=== PATIENT | male | born 1970 | race Caucasian/White ===

== ENCOUNTER 2019-05-14 16:00 | Emergency (ER) | payer MEDICAID, OTHER ==
[~2019-05-14] VITALS: Ht 162.6 cm; Wt 82.0 kg
[~2019-05-14 16:00] MED LIST: DOCU100C40 PO; FLO0.4C PO; PANT-47 PO
[2019-05-14 16:08] VITALS: BP 145/98
[2019-05-14] MEDS ORDERED: HYDROcodone/acetaminophen 10/325mg tab PO ONE (16:55)
[2019-05-14] MEDS ORDERED: HYDR-4353 PO (17:07)
== END 2019-05-14 17:26 | disposition home or self-care (01) ==
LOC: ER 16:01
DX: S46.212A Strain of muscle, fascia and tendon of other parts of biceps, left arm, initial encounter (principal); I48.91 Unspecified atrial fibrillation; F15.90 Other stimulant use, unspecified, uncomplicated; Z79.899 Other long term (current) drug therapy; W18.39XA Other fall on same level, initial encounter; Y93.43 Activity, gymnastics; Y92.39 Other specified sports and athletic area as the place of occurrence of the external cause; Y99.8 Other external cause status
CPT/HCPCS: 99283

== ENCOUNTER 2019-09-05 09:15 | Inpatient (IN) | payer MEDICAID ==
[2019-08-27 11:10] LABS: PRE OP INR 0.9 INR; PRE OP PROTIME 9.9 SECONDS (9.0-12.0)
[2019-08-27 11:11] LABS: BASOPHILS % (AUTO) 0.6 % (0-1); EOSINOPHILS # (AUTO) 0.3 X10'3 (0-0.9); EOSINOPHILS % (AUTO) 4.3 % (0-6); LYMPHOCYTES # (AUTO) 2.3 X10'3 (1.1-4.8); LYMPHOCYTES % (AUTO) 29.1 % (21-51); MEAN CORPUSCULAR HEMOGLOBIN 32.6 PG (27.0-31.0); MEAN CORPUSCULAR HGB CONC 34.8 g/dL (33.0-36.5); MEAN CORPUSCULAR VOLUME 93.8 FL (78-98); MONOCYTES # (AUTO) 0.8 X10'3 (0-0.9); MONOCYTES % (AUTO) 9.6 % (2-12); NEUTROPHILS # (AUTO) 4.5 X10'3 (1.8-7.7); NEUTROPHILS % (AUTO) 56.4 % (42-75); PRE OP HEMATOCRIT 47.2 % (42.0-52.0); PRE OP HEMOGLOBIN 16.4 g/dL (14.0-17.9); PRE OP PLATELET COUNT 231 X10'3 (140-440); RED BLOOD COUNT 5.03 X10'6 (4.70-6.10); RED CELL DISTRIBUTION WIDTH 12.7 % (11.5-14.5)
[2019-08-27 11:16] LABS: ALBUMIN 3.8 G/DL (3.4-5.0); ALBUMIN/GLOBULIN RATIO 0.9 (1.1-1.5); ALKALINE PHOSPHATASE 98 IU/L (46-116); BLOOD UREA NITROGEN 13 MG/DL (7-18); BUN/CREATININE RATIO 14.6 (5.4-32.0); CALCIUM 9.2 MG/DL (8.5-10.1); CHLORIDE 101 MMOL/L (99-107); CREATININE 0.89 MG/DL (0.60-1.10); PRE OP ALT 71 U/L (30-65); PRE OP ANION GAP 7 (8-16); PRE OP AST 50 U/L (10-37); PRE OP BILIRUB, TOTAL 0.4 MG/DL (0.0-1.0); PRE OP GLUCOSE 127 MG/DL (70-104); PRE OP SODIUM 137 MMOL/L (135-145); TOTAL CARBON DIOXIDE 29.1 MMOL/L (24-32); TOTAL PROTEIN 7.9 G/DL (6.4-8.2); eGFR > 90 ML/MIN
[~2019-09-05] VITALS: Ht 160 cm; Wt 85.1 kg
[~2019-09-05 09:15] MED LIST changes: +AMLO5TAB16 PO; -DOCU100C40 PO; -FLO0.4C PO; +METO-395 PO; +MODA200T48 PO; -PANT-47 PO; +QUET25TA PO
[2019-09-08] VITALS (19 sets, daily range): BP systolic 85–146; BP diastolic 42–99
[2019-09-08] MEDS ORDERED: ringers solution, lacted 1,000 ML IV SCH (05:00)
[2019-09-08] MEDS ORDERED: cefazolin/dext.iso 2gm/100ml 100 ML IV ONE (05:30)
[2019-09-08] MEDS ORDERED: famotidine 20mg tablet PO ONE (05:30)
[2019-09-08] MEDS ORDERED: tranexamic acid inj. 790 MG in normal saline 100ml IV soln 100 ML IV ONE ×4 (05:30)
[2019-09-08] MEDS ORDERED: vancomycin inj 1,500 MG in normal saline 300ml IV soln IV ONE (05:30)
[2019-09-08] MEDS ORDERED: DOCUMENT DATE & TIME OF BETA-BLOCKER PO ONE (05:30)
[2019-09-08] MEDS ORDERED: LIDOcaine 1% (10mg/ml) 2ml vial ONE (06:25)
[2019-09-08] MEDS ORDERED: metoprolol succinate 25mg (24-HOUR) SR. Tablet PO ONE (06:25)
[2019-09-08] MEDS ORDERED: mupirocin 2% nasal ointment 1gm UD NS ONE (06:40)
[2019-09-08] MEDS ORDERED: ROPIVAcaine 0.5% (5mg/ml) 30ml vial ONE ×2 (08:28→09:20)
[2019-09-08] MEDS ORDERED: ketorolac trometh. 30mg/ml inj. ONE (08:28)
[2019-09-08] MEDS ORDERED: sevoflurane 250ml liquid IH ONE (09:05)
[2019-09-08] MEDS ORDERED: fentaNYL/PF 50MCG/1 ML 2ML syringe ONE (09:17)
[2019-09-08] MEDS ORDERED: MIDAZolam 5mg/5ml vial ONE (09:17)
[2019-09-08] MEDS ORDERED: LIDOcaine 1%/PF 5ML 10 MG/ML VIAL ONE (09:20)
[2019-09-08] MEDS ORDERED: propofol inj 20 ML IV ONE (09:20)
[2019-09-08] MEDS ORDERED: rocuronium 10mg/ml inj IV ONE (09:50)
[2019-09-08] MEDS ORDERED: ondansetron/PF 4mg/2ml inj ONE (12:08)
[2019-09-08] MEDS ORDERED: dexamethasone sod phosphate 4mg/ml inj. ONE (12:08)
--- NOTE | 2019-09-08 12:35 | NUR ---
ADMITTED TO PACU FROM OR ACCOMPANIED BY ANESTHESIA. INTIAL PHYSICAL ASSESSMENT DONE AND RECORDED. REPORT RECEIVED FROM ANESTHESIA.
[2019-09-08] MEDS ORDERED: acetaminophen 325mg tablet PO PRN (13:25)
[2019-09-08] MEDS ORDERED: diphenhydrAMINE 25mg capsule PO PRN ×2 (13:25)
[2019-09-08] MEDS ORDERED: ondansetron/PF 4mg/2ml inj IV PRN (13:25)
[2019-09-08] MEDS ORDERED: oxyCODONE IR 5mg (immed. release) tablet PO PRN ×2 (13:25)
[2019-09-08] MEDS ORDERED: magnesium hydroxide 30ml (MOM) UD suspension PO PRN (13:25)
[2019-09-08] MEDS ORDERED: bisacodyl 10mg suppository rectal RC PRN (13:25)
[2019-09-08] MEDS ORDERED: HYDROmorphone 1 mg/ml syringe IV PRN (13:25)
[2019-09-08] MEDS ORDERED: HYDROmorphone inj. 0.5 MG/0.5 ML DISP.SYRIN IV PRN (13:25)
--- NOTE | 2019-09-08 13:36 | NUR ---
RECEIVED REPORT FROM WADE WOODS
--- NOTE | 2019-09-08 13:45 | NUR ---
PACU DISCHARGE CRITERIA MET, REPORT GIVEN TO FLOOR. DENIES PAIN OR DISCOMFORT, TRANSFERRED TO ROOM IN STABLE GOOD CONDITION.
[2019-09-08] MEDS: acetaminophen 325mg tablet PO SCH ×2 (14:00→20:42)
--- NOTE | 2019-09-08 14:18 | NUR ---
PT ARRIVED ON FLOOR IN ORTHO BED VERY SLEEPY
--- NOTE | 2019-09-08 14:58 | NUR ---
PT CAME TO FLOOR W/OUT ON Q PUMP, CALLED RECOVERY AND OR CHARGE REGARDING ON Q PUMP, PT HAS CATH INSERTED W/CAP ON FOR ON Q PUMP BUT NO ON Q PUMP, RECOVERY NURSE CHECKED W/ANESTHESIOLOGIST, ANESTHESIOLOGIST SAID THAT THERE WAS SUPPOSED TO BE AN ORDER FOR AN ON Q PUMP, SPOKE W/PHARMACIST AND PHARMACY SAID THAT THERE WAS NOT AN ORDERED PLACED TODAY FOR A PUMP RECOVERY NURSE TO ORDER PUMP PER ANESTHESIOLOGIST ORDERS, CONTINUE TO MONITOR PT
[2019-09-08] MEDS ORDERED: ROPIVAcaine 0.2% (10 MG/5 ML) BOLUS INJECTION INTERSCALE PRN (15:00)
[2019-09-08] MEDS ORDERED: ROPIVAcaine 0.2%/PF PUMP/bolus 550 ML INTERSCALE SCH (15:00)
--- NOTE | 2019-09-08 15:56 | NUR ---
smooth recovery nurse attached on q pump to pt cannula, continue to monitor
[2019-09-08] MEDS: ceFAZolin 1GM/D5W- ADD-VANTAGE 50 ML IV SCH (15:59)
[2019-09-08] MEDS ORDERED: tranexamic acid inj. 850 MG in normal saline 100ml IV soln 100 ML IV ONE (16:25)
--- NOTE | 2019-09-08 18:30 | NUR ---
GAVE REPORT TO WADE GODFREY
[2019-09-08] MEDS: potassium cl 20mEq in 1/2 NS 1,000 ML IV SCH ×2 (19:54→21:22)
[2019-09-08] MEDS ORDERED: vancomycin/NS 1 GM ADD-VANTAGE 250 ML IV SCH (20:00)
[2019-09-08] MEDS: modafinil 100mg tablet PO SCH (20:41)
[2019-09-08] MEDS ORDERED: sennosides 8.6mg tablet PO SCH (21:00)
[2019-09-08] MEDS ORDERED: QUEtiapine 25mg tablet PO SCH (21:00)
[2019-09-09] MEDS: ceFAZolin 1GM/D5W- ADD-VANTAGE 50 ML IV SCH (00:36)
[2019-09-09 02:00] VITALS: BP 108/53
[2019-09-09] MEDS: acetaminophen 325mg tablet PO SCH ×3 (02:00→14:00)
[2019-09-09 06:00] VITALS: BP 109/69
[2019-09-09 06:06] LABS: BASOPHILS % (AUTO) 0.1 % (0-1); EOSINOPHILS % (AUTO) 0.1 % (0-6); HEMATOCRIT 35.6 % (42.0-52.0); HEMOGLOBIN 12.4 g/dl (14.0-17.9); LYMPHOCYTES # (AUTO) 1.2 X10'3 (1.1-4.8); LYMPHOCYTES % (AUTO) 9.2 % (21-51); MEAN CORPUSCULAR HEMOGLOBIN 32.7 PG (27.0-31.0); MEAN CORPUSCULAR HGB CONC 34.8 g/dL (33.0-36.5); MEAN CORPUSCULAR VOLUME 93.9 FL (78-98); MEAN PLATELET VOLUME 10.2 FL (7.4-10.4); MONOCYTES # (AUTO) 1.1 X10'3 (0-0.9); MONOCYTES % (AUTO) 7.9 % (2-12); NEUTROPHILS # (AUTO) 11.2 X10'3 (1.8-7.7); NEUTROPHILS % (AUTO) 82.7 % (42-75); PLATELET COUNT 280 X10'3 (140-440); RED BLOOD COUNT 3.79 X10'6 (4.70-6.10); RED CELL DISTRIBUTION WIDTH 12.6 % (11.5-14.5); WHITE BLOOD COUNT 13.5 X10'3 (4.5-11.0)
--- NOTE | 2019-09-09 06:07 | NUR ---
REPORT GIVEN TO WADE FERRER.
[2019-09-09 06:18] LABS: ANION GAP 9 (8-16); CHLORIDE 102 MMOL/L (99-107); POTASSIUM 5.1 MMOL/L (3.5-5.1); SODIUM 136 MMOL/L (135-145); TOTAL CARBON DIOXIDE 24.8 MMOL/L (24-32)
--- NOTE | 2019-09-09 06:28 | NUR ---
RECEIVED REPORT FROM WADE GODFREY
[2019-09-09] MEDS: modafinil 100mg tablet PO SCH (07:45)
[2019-09-09 07:52] VITALS: BP 114/72
[2019-09-09] MEDS ORDERED: metoprolol succinate 25mg (24-HOUR) SR. Tablet PO SCH (08:00)
[2019-09-09] MEDS ORDERED: amLODIPine 5mg tablet PO SCH (08:00)
[2019-09-09] MEDS ORDERED: aspirin 325mg tablet PO SCH (08:30)
[2019-09-09] MEDS: potassium cl 20mEq in 1/2 NS 1,000 ML IV SCH (08:57)
[2019-09-09 10:00] VITALS: BP 110/61
--- NOTE | 2019-09-09 11:21 | NUR ---
pt is asking for narcotic pain relief at this time but unable to quantify his pain level, pain falls asleep while taking, pt was asked by nursing staff to utilize pain pump (on q) bolus and to turn up dial on pump pt is refusing to utilize pain pump at this time, alok is aware of situation and does not feel that it is safe to admin narcotics to patient at this time because of his refusal to utilize pain pump, his low bp, his sleepiness as well as his medical hx of etoh and depression continue to educate and monitor pt
--- NOTE | 2019-09-09 16:50 | NUR ---
Joint replacement consult: Pt seen by RD for written/verbal high protein ed w/ RD contact information provided. Pt agrees to double proteins/eggs TIDWM; dietary notified. Per charge account identification clerk pt hx 1/2 gallon of hard liquor each night and MD orders beerx2 BIDLD. VIVIEN d/w RN regarding thiamin/folic/MVI per MD approval given etoh hx. Addendum: 09/09/19 at [address] Amended: Links added.
[2019-09-09] MEDS ORDERED: ASPI-1 PO (17:23)
--- NOTE | 2019-09-09 17:30 | NUR ---
PT IS DEMANDING TO GO AMA, CHARGE NURSE NOTIFIED DR. GALLOWAY IN OR, NURSING STAFF ADVISED PT NOT TO LEAVE, PT LEFT WITH POWDER PACKS, D/C INSTRUCTIONS, UNDERSTANDING OF INSTRUCTIONS AND W/ALL BELONGINGS IN WHEELCHAIR ACCOMPANIED BY TO PRIVATE VEHICLE TO GO TO GO HOME AND F/U W/SURGEON, PT ALSO SIGNED AMA PAPERWORK
[2019-09-09 18:00] VITALS: BP 108/59
[2019-09-10] MEDS ORDERED: DULO60CA45 PO (09:47)
[2019-09-10] MEDS ORDERED: HYDR-4353 PO (09:48)
[2019-09-10] MEDS ORDERED: acetaminophen 325mg tablet PO PRN (13:25)
== END 2019-09-09 17:30 | disposition left against medical advice (07) | DRG 322 ==
LOC: PAS IN 09-08 05:53 → EDSTATUS 09-08 09:30 → ORTHO 4S 09-08 14:10
PROVIDERS: ADMIT Orthopaedic Surgery; ATTEND Orthopaedic Surgery
PROC: 0RRJ0JZ Replacement of Right Shoulder Joint with Synthetic Substitute, Open Approach (ICD-10-PCS; 2019-09-08)
PROC: 3E0T3BZ Introduction of Anesthetic Agent into Peripheral Nerves and Plexi, Percutaneous Approach (ICD-10-PCS; principal; 2019-09-08 09:10)
DX: M19.011 Primary osteoarthritis, right shoulder (principal); D62 Acute posthemorrhagic anemia; F10.10 Alcohol abuse, uncomplicated; F32.9 Major depressive disorder, single episode, unspecified; G47.30 Sleep apnea, unspecified; I10 Essential (primary) hypertension; I25.10 Atherosclerotic heart disease of native coronary artery without angina pectoris; M25.511 Pain in right shoulder; I48.91 Unspecified atrial fibrillation
CPT/HCPCS: 36415; 80051; 80053; 82948; 85025; 85610; 85730; 87081; 97161; 97530; A4565; A4618; A7000; C1713; C1776; G0378; J0690; J1100; J1170; J1885; J2001; J2250; J2405; J2704; J2795; J3010; J3370; J3480; J7120

== ENCOUNTER 2019-09-10 09:01 | Observation (INO) | payer MEDICAID ==
[~2019-09-10] VITALS: Ht 162.6 cm; Wt 81.8 kg
[~2019-09-10 09:01] MED LIST changes: +ASPI-1 PO
[2019-09-10] MEDS ORDERED: aspirin 81mg tab.chew PO ONE (09:10)
[2019-09-10] MEDS ORDERED: nitroGLYCERIN 0.4mg SUBLingual tab SL PRN (09:10)
[2019-09-10] MEDS ORDERED: iohexol 350MG/ML 100ml bottle IV ONE (09:12)
[2019-09-10] MEDS ORDERED: morphine 4 MG/ML inj SYRINge IV ONE (09:20)
[2019-09-10] MEDS ORDERED: ondansetron/PF 4mg/2ml inj IV ONE (09:20)
[2019-09-10] MEDS ORDERED: enoxaparin 100mg/ml syringe SUBCUT ONE (09:20)
[2019-09-10] MEDS ORDERED: normal saline 1000ML IV soln IVB ONE (09:20)
[2019-09-10 09:32] LABS: BASOPHILS # (AUTO) 0.1 X10'3 (0-0.2); BASOPHILS % (AUTO) 0.5 % (0-1); EOSINOPHILS # (AUTO) 0.1 X10'3 (0-0.9); HEMATOCRIT 30.6 % (42.0-52.0); HEMOGLOBIN 10.9 g/dl (14.0-17.9); LYMPHOCYTES # (AUTO) 3.1 X10'3 (1.1-4.8); LYMPHOCYTES % (AUTO) 25.4 % (21-51); MEAN CORPUSCULAR HGB CONC 35.6 g/dL (33.0-36.5); MEAN CORPUSCULAR VOLUME 92.7 FL (78-98); MEAN PLATELET VOLUME 9.7 FL (7.4-10.4); MONOCYTES # (AUTO) 1.1 X10'3 (0-0.9); MONOCYTES % (AUTO) 9.2 % (2-12); NEUTROPHILS # (AUTO) 7.9 X10'3 (1.8-7.7); NEUTROPHILS % (AUTO) 63.9 % (42-75); PLATELET COUNT 230 X10'3 (140-440); RED BLOOD COUNT 3.31 X10'6 (4.70-6.10); RED CELL DISTRIBUTION WIDTH 12.4 % (11.5-14.5); WHITE BLOOD COUNT 12.4 X10'3 (4.5-11.0)
[2019-09-10] MEDS ORDERED: DULO60CA45 PO (09:47)
[2019-09-10] MEDS ORDERED: HYDR-4353 PO (09:48)
[2019-09-10 09:49] LABS: ALANINE AMINOTRANSFERASE 39 U/L (12-78); ALBUMIN 3.1 G/DL (3.4-5.0); ALKALINE PHOSPHATASE 77 IU/L (46-116); ANION GAP 8 (8-16); ASPARTATE AMINO TRANSFERASE 30 U/L (10-37); BILIRUBIN,TOTAL 0.2 MG/DL (0.1-1.0); BLOOD UREA NITROGEN 25 MG/DL (7-18); BUN/CREATININE RATIO 27.8 (5.4-32.0); CALCIUM 8.2 MG/DL (8.5-10.1); CHLORIDE 101 MMOL/L (99-107); GLUCOSE 133 MG/DL (70-104); POTASSIUM 3.7 MMOL/L (3.5-5.1); SODIUM 137 MMOL/L (135-145); TOTAL CARBON DIOXIDE 28.4 MMOL/L (24-32); TOTAL PROTEIN 6.3 G/DL (6.4-8.2); eGFR 90 ML/MIN
[2019-09-10 10:00] VITALS: BP 124/74
[2019-09-10] MEDS ORDERED: LORazepam 2 mg/ml vial IV PRN ×2 (12:10)
[2019-09-10] MEDS ORDERED: ondansetron/PF 4mg/2ml inj IV PRN (12:10)
[2019-09-10] MEDS ORDERED: magnesium 2GM in 50ml NS 50 ML IV PRN (12:10)
[2019-09-10] MEDS ORDERED: potassium Cl 20 mEq SR tablet PO PRN ×2 (12:10)
[2019-09-10] MEDS ORDERED: bisacodyl 10mg suppository rectal RC PRN (12:10)
[2019-09-10] MEDS ORDERED: potassium CL 10mEq/100ml bag 100 ML IV PRN ×2 (12:10)
[2019-09-10] MEDS ORDERED: ipratropium/albuterol 3ml nebule NEB PRN (12:10)
[2019-09-10] MEDS ORDERED: magnesium 4gm in 100ml NS 100 ML IV PRN (12:10)
[2019-09-10] MEDS ORDERED: haloperidol lactate 5mg/ml inj IM PRN (12:10)
[2019-09-10] MEDS ORDERED: mag hydrox/Alum hydrox/simeth 30ml oral suspension PO PRN (12:10)
[2019-09-10] MEDS ORDERED: magnesium hydroxide 30ml (MOM) UD suspension PO PRN (12:10)
[2019-09-10] MEDS ORDERED: dextrose 50%-water 50ml dispensing syringe IV PRN (12:10)
[2019-09-10] MEDS ORDERED: magnesium Cl slow-release 64mg tablet PO PRN (12:10)
[2019-09-10] MEDS ORDERED: oxyCODONE IR 5mg (immed. release) tablet PO PRN (12:10)
[2019-09-10] MEDS ORDERED: acetaminophen 325mg tablet PO PRN (12:10)
[2019-09-10] MEDS ORDERED: thiamine 100mg/ml 2ml inj. IV ONE (12:10)
[2019-09-10] MEDS ORDERED: modafinil 100mg tablet PO SCH (20:00)
[2019-09-10] MEDS ORDERED: QUEtiapine 25mg tablet PO SCH (21:00)
[2019-09-11] MEDS ORDERED: K and/or MAG REPLACEMENT MC SCH (08:00)
[2019-09-11] MEDS ORDERED: duloxetine 30mg CAPSULE.DR PO SCH (08:00)
[2019-09-11] MEDS ORDERED: amLODIPine 5mg tablet PO SCH (08:00)
[2019-09-11] MEDS ORDERED: metoprolol succinate 25mg (24-HOUR) SR. Tablet PO SCH (08:00)
[2019-09-11] MEDS ORDERED: aspirin 325mg tablet PO SCH (08:30)
== END 2019-09-10 12:30 | disposition left against medical advice (07) ==
LOC: ER 09:02 → ED HOLD 12:06
PROVIDERS: ADMIT Family Medicine; ATTEND Family Medicine
DX: J96.91 Respiratory failure, unspecified with hypoxia (principal); R07.89 Other chest pain; M19.011 Primary osteoarthritis, right shoulder; I12.9 Hypertensive chronic kidney disease with stage 1 through stage 4 chronic kidney disease, or unspecified chronic kidney disease; N18.9 Chronic kidney disease, unspecified; F10.239 Alcohol dependence with withdrawal, unspecified; D72.829 Elevated white blood cell count, unspecified; G47.33 Obstructive sleep apnea (adult) (pediatric); I48.91 Unspecified atrial fibrillation; G47.419 Narcolepsy without cataplexy; Z79.82 Long term (current) use of aspirin; Z79.899 Other long term (current) drug therapy
CPT/HCPCS: 36415; 71045; 71275; 80053; 83880; 84484; 85025; 85610; 93005; 96372; 96374; 96375; 99284; G0378; J2270; J2405; Q9967; J1650

== ENCOUNTER 2020-08-23 08:42 | Outpatient (CLI) | payer MEDICAID ==
[~2020-08-23] VITALS: Ht 162.6 cm; Wt 83.9 kg
[~2020-08-23 08:42] MED LIST changes: +DULO60CA45 PO; +HYDR-4353 PO
[2020-08-23] MEDS ORDERED: CEPH500C5 PO (10:01)
[2020-08-23 10:56] LABS: BASOPHILS # (AUTO) 0.1 X10'3 (0-0.2); BASOPHILS % (AUTO) 0.7 % (0-1); EOSINOPHILS # (AUTO) 0.4 X10'3 (0-0.9); EOSINOPHILS % (AUTO) 4.9 % (0-6); LYMPHOCYTES # (AUTO) 2.4 X10'3 (1.1-4.8); LYMPHOCYTES % (AUTO) 32.6 % (21-51); MEAN CORPUSCULAR HEMOGLOBIN 32.8 PG (27.0-31.0); MEAN CORPUSCULAR HGB CONC 34.5 g/dL (33.0-36.5); MEAN CORPUSCULAR VOLUME 95.1 FL (78-98); MEAN PLATELET VOLUME 10.3 FL (7.4-10.4); MONOCYTES # (AUTO) 0.8 X10'3 (0-0.9); MONOCYTES % (AUTO) 10.2 % (2-12); NEUTROPHILS # (AUTO) 3.9 X10'3 (1.8-7.7); NEUTROPHILS % (AUTO) 51.6 % (42-75); PRE OP HEMATOCRIT 49.3 % (42.0-52.0); PRE OP PLATELET COUNT 248 X10'3 (140-440); RED BLOOD COUNT 5.18 X10'6 (4.70-6.10); RED CELL DISTRIBUTION WIDTH 12.7 % (11.5-14.5)
[2020-08-23 11:14] LABS: PRE OP PROTIME 10.5 SECONDS (9.0-12.0)
[2020-08-23 11:19] LABS: ALBUMIN 4.1 G/DL (3.4-5.0); ALKALINE PHOSPHATASE 89 IU/L (46-116); BLOOD UREA NITROGEN 17 MG/DL (7-18); BUN/CREATININE RATIO 18.1 (5.4-32.0); CALCIUM 9.2 MG/DL (8.5-10.1); CHLORIDE 102 MMOL/L (99-107); CREATININE 0.94 MG/DL (0.60-1.10); PRE OP ALT 65 U/L (30-65); PRE OP ANION GAP 12 (8-16); PRE OP AST 52 U/L (10-37); PRE OP BILIRUB, TOTAL 0.4 MG/DL (0.0-1.0); PRE OP GLUCOSE 142 MG/DL (70-104); PRE OP POTASSIUM 4.4 MMOL/L (3.4-5.1); PRE OP SODIUM 137 MMOL/L (135-145); TOTAL CARBON DIOXIDE 22.9 MMOL/L (24-32); TOTAL PROTEIN 8.1 G/DL (6.4-8.2); eGFR 85 ML/MIN
[2020-08-31] MEDS ORDERED: ringers solution, lacted 1,000 ML IV SCH (05:00)
[2020-08-31] MEDS ORDERED: famotidine 20mg tablet PO ONE (05:30)
== END 2020-08-23 23:59 | disposition home or self-care (01) ==
LOC: PRE-OP 08:42 → EDSTATUS 08-31 10:15
PROVIDERS: ATTEND Orthopaedic Surgery
DX: Z01.812 Encounter for preprocedural laboratory examination (principal); S83.232D Complex tear of medial meniscus, current injury, left knee, subsequent encounter; S83.412D Sprain of medial collateral ligament of left knee, subsequent encounter; M17.12 Unilateral primary osteoarthritis, left knee; M25.562 Pain in left knee; Z20.828 Contact with and (suspected) exposure to other viral communicable diseases
CPT/HCPCS: 36415; 80053; 85025; 85610; 85730; 87081; 87635; J7120

== ENCOUNTER 2020-09-23 08:35 | Inpatient (IN) | payer MEDICAID ==
[2020-09-15 16:58] LABS: BASOPHILS # (AUTO) 0.1 X10'3 (0-0.2); BASOPHILS % (AUTO) 0.8 % (0-1); EOSINOPHILS # (AUTO) 0.3 X10'3 (0-0.9); EOSINOPHILS % (AUTO) 2.8 % (0-6); LYMPHOCYTES # (AUTO) 2.4 X10'3 (1.1-4.8); LYMPHOCYTES % (AUTO) 25.3 % (21-51); MEAN CORPUSCULAR HEMOGLOBIN 32.4 PG (27.0-31.0); MEAN CORPUSCULAR HGB CONC 34.5 g/dL (33.0-36.5); MEAN CORPUSCULAR VOLUME 93.9 FL (78-98); MEAN PLATELET VOLUME 9.9 FL (7.4-10.4); MONOCYTES # (AUTO) 0.7 X10'3 (0-0.9); MONOCYTES % (AUTO) 7.2 % (2-12); NEUTROPHILS % (AUTO) 63.9 % (42-75); PRE OP HEMATOCRIT 50.5 % (42.0-52.0); PRE OP HEMOGLOBIN 17.4 g/dL (14.0-17.9); PRE OP PLATELET COUNT 286 X10'3 (140-440); RED BLOOD COUNT 5.38 X10'6 (4.70-6.10); RED CELL DISTRIBUTION WIDTH 12.2 % (11.5-14.5)
[2020-09-15 17:04] LABS: PRE OP PROTIME 10.3 SECONDS (9.0-12.0)
[2020-09-15 17:07] LABS: ALBUMIN 4.4 G/DL (3.4-5.0); ALKALINE PHOSPHATASE 90 IU/L (46-116); BLOOD UREA NITROGEN 12 MG/DL (7-18); BUN/CREATININE RATIO 13.3 (5.4-32.0); CALCIUM 9.6 MG/DL (8.5-10.1); CHLORIDE 100 MMOL/L (99-107); PRE OP ALT 65 U/L (30-65); PRE OP ANION GAP 10 (8-16); PRE OP AST 33 U/L (10-37); PRE OP BILIRUB, TOTAL 0.5 MG/DL (0.0-1.0); PRE OP GLUCOSE 143 MG/DL (70-104); PRE OP SODIUM 136 MMOL/L (135-145); TOTAL CARBON DIOXIDE 25.9 MMOL/L (24-32); TOTAL PROTEIN 8.7 G/DL (6.4-8.2); eGFR 89 ML/MIN
[~2020-09-23] VITALS: Ht 162.6 cm; Wt 90.0 kg
[2020-09-23] VITALS (17 sets, daily range): BP systolic 98–135; BP diastolic 64–87
[~2020-09-23 08:35] MED LIST changes: -AMLO5TAB16 PO; -ASPI-1 PO; -DULO60CA45 PO; -METO-395 PO; +famotidine 20mg tablet PO ONE; +ringers solution, lacted 1,000 ML IV SCH
[2020-09-23] MEDS ORDERED: ceFAZolin 2gm in dextrose, iso 50 ML IV ONE (12:00)
[2020-09-23] MEDS ORDERED: ROPIVAcaine 0.5% (5mg/ml) 30ml vial ONE ×2 (12:25→14:32)
[2020-09-23] MEDS ORDERED: ketorolac trometh. 30mg/ml inj. ONE (12:25)
[2020-09-23] MEDS ORDERED: tranexamic acid inj. 860 MG in normal saline 100ml IV soln 100 ML IV ONE ×4 (12:45)
[2020-09-23] MEDS ORDERED: glycopyrrolate 0.2mg/ml inj ONE (13:02)
[2020-09-23] MEDS ORDERED: neostigmine methylsulfate 1 MG/ML 10ml vial ONE (13:02)
[2020-09-23] MEDS ORDERED: sevoflurane 250ml liquid IH ONE (13:02)
[2020-09-23] MEDS ORDERED: dexamethasone sod phosphate 10mg/ml inj ONE (13:02)
[2020-09-23] MEDS ORDERED: ondansetron/PF 4mg/2ml inj ONE (13:02)
[2020-09-23] MEDS ORDERED: LIDOcaine 1%/PF 5ML 10 MG/ML VIAL ONE (13:02)
[2020-09-23] MEDS ORDERED: MIDAZolam 5mg/5ml vial ONE (13:16)
[2020-09-23] MEDS ORDERED: fentaNYL /PF 50mcg/ml 5ml ampule ONE (13:17)
[2020-09-23] MEDS ORDERED: LIDOcaine 2% (20mg/ml) 5ml vial ONE (13:20)
[2020-09-23] MEDS ORDERED: propofol inj 20 ML IV ONE (13:20)
[2020-09-23] MEDS ORDERED: rocuronium 10mg/ml inj IV ONE (13:32)
[2020-09-23] MEDS ORDERED: morphine 4 MG/ML inj SYRINge IV PRN (13:50)
[2020-09-23] MEDS ORDERED: fentaNYL/PF 50MCG/1 ML 2ML syringe IV PRN ×2 (13:50)
[2020-09-23] MEDS ORDERED: morphine 2 MG/ML inj. syringe IV PRN (13:50)
[2020-09-23] MEDS ORDERED: ondansetron/PF 4mg/2ml inj IV PRN ×2 (13:50→16:00)
[2020-09-23] MEDS ORDERED: ROPIVAcaine 0.2% (10 MG/5 ML) BOLUS INJECTION ADDCANAL PRN (13:50)
[2020-09-23] MEDS ORDERED: hydrALAZINE 20mg/ml inj. IV PRN (13:50)
[2020-09-23] MEDS ORDERED: ringers solution, lacted 1,000 ML IV SCH (13:50)
[2020-09-23] MEDS ORDERED: ROPIVAcaine 0.2%/PF PUMP/bolus 550 ML ADDCANAL SCH (13:50)
[2020-09-23] MEDS ORDERED: labetalol 20mg/4ml (5mg/ml) syringe IV PRN (13:50)
[2020-09-23] MEDS ORDERED: labetalol 20mg/4ml (5mg/ml) syringe IV ONE ×2 (14:05→14:56)
[2020-09-23] MEDS ORDERED: HYDROmorphone 1 mg/ml syringe IV PRN (16:00)
[2020-09-23] MEDS ORDERED: acetaminophen 325mg tablet PO PRN (16:00)
[2020-09-23] MEDS ORDERED: diphenhydrAMINE 25mg capsule PO PRN ×2 (16:00)
[2020-09-23] MEDS ORDERED: HYDROmorphone inj. 0.5 MG/0.5 ML DISP.SYRIN IV PRN (16:00)
[2020-09-23] MEDS ORDERED: bisacodyl 10mg suppository rectal RC PRN (16:00)
[2020-09-23] MEDS ORDERED: oxyCODONE IR 5mg (immed. release) tablet PO PRN (16:00)
[2020-09-23] MEDS ORDERED: magnesium hydroxide 30ml (MOM) UD suspension PO PRN (16:00)
--- NOTE | 2020-09-23 16:40 | NUR ---
Received from OR via , accompanied by Anesthesiologist DR LEUNG and report given by Anesthesiolgist. PATIENT WAKING UP, DENIES PAIN, V/S WNL, SCD ON, 20G PIV RUE, NEUROVASCULAR CHAECKS INTACT, LEFT KNEE WRAP DRESSING CDI W/ ONQ BALL AT 2ML/HR AND COLD POWDER PACK
--- NOTE | 2020-09-23 17:20 | NUR ---
PATIENT NORCO, DENIES PAIN, V/S WNL, SCD ON, 20G PIV RUE, NEUROVASCULAR CHECKS INTACT, LEFT KNEE WRAP DRESSING CDI W/ ONQ BALL AT 4ML/HR AND COLD POWDER PACK. PATIENT TAKEN TO 340A WITH ALL BELONIGNGS AND HOOKED UP TO MONITORS IN ROOM AND REPORT GIVEN TO RN WHO HAS TAKEN OVER PATIENT CARE.
--- NOTE | 2020-09-23 17:50 | NUR ---
Patient in room [facility]. I have received report from Tone OLVERA and had the opportunity to ask questions and assume patient care. no signs of distress
--- NOTE | 2020-09-23 18:32 | NUR ---
Patient in room [facility]. I have received report from WADE Forbes and had the opportunity to ask questions and assume patient care.
[2020-09-23] MEDS ORDERED: tranexamic acid inj. 900 MG in normal saline 100ml IV soln 100 ML IV ONE (19:00)
[2020-09-23] MEDS: ceFAZolin/D5W- 1GM premix 50 ML IV SCH (19:08)
[2020-09-23] MEDS: potassium cl 20mEq in 1/2 NS 1,000 ML IV SCH (19:29)
[2020-09-23] MEDS ORDERED: vancomycin/NS 1 GM ADD-VANTAGE 250 ML IV SCH (20:00)
[2020-09-23] MEDS: modafinil 100mg tablet PO SCH ×3 (20:00→21:17)
[2020-09-23] MEDS: acetaminophen 325mg tablet PO SCH (20:37)
[2020-09-23] MEDS: oxyCODONE IR 5mg (immed. release) tablet PO PRN (20:51)
[2020-09-23] MEDS ORDERED: QUEtiapine 25mg tablet PO SCH (21:00)
[2020-09-23] MEDS ORDERED: sennosides 8.6mg tablet PO SCH (21:00)
[2020-09-24] VITALS: BP 103/58
[2020-09-24] MEDS: ceFAZolin/D5W- 1GM premix 50 ML IV SCH (00:06)
[2020-09-24] MEDS: acetaminophen 325mg tablet PO SCH ×2 (02:00→07:37)
[2020-09-24 04:00] VITALS: BP 115/60
[2020-09-24] MEDS: potassium cl 20mEq in 1/2 NS 1,000 ML IV SCH ×2 (06:33)
--- NOTE | 2020-09-24 06:35 | NUR ---
Problems reprioritized. Patient report given, questions answered & plan of care reviewed with WADE Fabian.
[2020-09-24 06:49] LABS: BASOPHILS % (AUTO) 0.1 % (0-1); EOSINOPHILS % (AUTO) 0 % (0-6); HEMATOCRIT 40.8 % (42.0-52.0); HEMOGLOBIN 13.9 g/dl (14.0-17.9); LYMPHOCYTES # (AUTO) 1.1 X10'3 (1.1-4.8); LYMPHOCYTES % (AUTO) 9.4 % (21-51); MEAN CORPUSCULAR HEMOGLOBIN 32.1 PG (27.0-31.0); MEAN CORPUSCULAR VOLUME 94.3 FL (78-98); MEAN PLATELET VOLUME 10.1 FL (7.4-10.4); MONOCYTES # (AUTO) 0.6 X10'3 (0-0.9); MONOCYTES % (AUTO) 5.4 % (2-12); NEUTROPHILS # (AUTO) 9.8 X10'3 (1.8-7.7); NEUTROPHILS % (AUTO) 85.1 % (42-75); PLATELET COUNT 250 X10'3 (140-440); RED BLOOD COUNT 4.33 X10'6 (4.70-6.10); RED CELL DISTRIBUTION WIDTH 12.3 % (11.5-14.5); WHITE BLOOD COUNT 11.5 X10'3 (4.5-11.0)
[2020-09-24 07:16] LABS: ANION GAP 11 (8-16); CHLORIDE 103 MMOL/L (99-107); POTASSIUM 5.5 MMOL/L (3.5-5.1); SODIUM 135 MMOL/L (135-145); TOTAL CARBON DIOXIDE 21.2 MMOL/L (24-32)
[2020-09-24] MEDS: modafinil 100mg tablet PO SCH ×2 (08:00→10:46)
[2020-09-24 08:12] VITALS: BP 89/43
[2020-09-24] MEDS ORDERED: aspirin 325mg tablet PO SCH (08:30)
[2020-09-24] MEDS: oxyCODONE IR 5mg (immed. release) tablet PO PRN (08:52)
[2020-09-24 12:10] VITALS: BP 110/50
--- NOTE | 2020-09-24 14:43 | NUR ---
PER CONVERSATION WITH DR URENA, OK TO DC PT TODAY IF HE DID OK WITH PHYSICAL THERAPY. PER PHYSICAL THERAPY PT WAS SAFE TO DC HOME. PT WANTED TO DC TODAY, WAS GIVEN THE OPTION TO STAY ANOTHER NIGHT IF HE FELT HE NEEDED IT. PT REFUSED. PT DISCHARGED IN STABLE CONDITION. LEFT FACILITY IN PRIVATE VEHICLE WITH . IV DC CANULA INTACT. ON-Q ON PT, PT AWARE HOW TO MANAGE. FOLLOW UP APPT MADE WITH AYANNA. ALL QUESTIONS ANSWERED. ALL BELONGINGS IN HAND. Addendum: 09/24/20 at 1448 by Dede Fuentes RN Amended: Links added.
[2020-09-25] MEDS ORDERED: acetaminophen 325mg tablet PO PRN (16:00)
== END 2020-09-24 14:38 | disposition home or self-care (01) | DRG 302 ==
LOC: PAS IN 11:18 → EDSTATUS 13:15 → SUR 3N 15:57
PROVIDERS: ADMIT Orthopaedic Surgery; ATTEND Orthopaedic Surgery
PROC: 8E0Y0CZ Robotic Assisted Procedure of Lower Extremity, Open Approach (ICD-10-PCS; 2020-09-23)
PROC: 3E0T3BZ Introduction of Anesthetic Agent into Peripheral Nerves and Plexi, Percutaneous Approach (ICD-10-PCS; 2020-09-23)
PROC: 0SRD0J9 Replacement of Left Knee Joint with Synthetic Substitute, Cemented, Open Approach (ICD-10-PCS; principal; 2020-09-23 13:02)
DX: M17.12 Unilateral primary osteoarthritis, left knee (principal)
CPT/HCPCS: 36415; 80051; 80053; 82948; 85025; 85610; 85730; 87081; 87635; 97110; 97116; 97161; 97530; A4215; A6258; A7000; C1713; C1758; C1776; G0378; J0690; J1100; J1885; J2001; J2250; J2405; J2704; J2710; J2795; J3010; J3370; J3480; J3490; J7120

== ENCOUNTER 2022-01-23 19:03 | Emergency (ER) | payer MEDICAID ==
[~2022-01-23] VITALS: Ht 162.6 cm; Wt 95.8 kg
[~2022-01-23 19:03] MED LIST changes: -famotidine 20mg tablet PO ONE; -ringers solution, lacted 1,000 ML IV SCH
[2022-01-23 21:39] LABS: BASOPHILS # (AUTO) 0.1 X10'3 (0-0.2); BASOPHILS % (AUTO) 0.5 % (0-1); EOSINOPHILS # (AUTO) 0.4 X10'3 (0-0.9); EOSINOPHILS % (AUTO) 3.8 % (0-6); HEMATOCRIT 48.4 % (42.0-52.0); HEMOGLOBIN 16.6 g/dl (14.0-17.9); LYMPHOCYTES # (AUTO) 2.6 X10'3 (1.1-4.8); LYMPHOCYTES % (AUTO) 24.5 % (21-51); MEAN CORPUSCULAR HEMOGLOBIN 31.1 PG (27.0-31.0); MEAN CORPUSCULAR HGB CONC 34.3 g/dL (33.0-36.5); MEAN CORPUSCULAR VOLUME 90.9 FL (78-98); MEAN PLATELET VOLUME 10.1 FL (7.4-10.4); MONOCYTES # (AUTO) 0.9 X10'3 (0-0.9); MONOCYTES % (AUTO) 8.8 % (2-12); NEUTROPHILS # (AUTO) 6.5 X10'3 (1.8-7.7); NEUTROPHILS % (AUTO) 62.4 % (42-75); PLATELET COUNT 233 X10'3 (140-440); RED BLOOD COUNT 5.33 X10'6 (4.70-6.10); RED CELL DISTRIBUTION WIDTH 12.8 % (11.5-14.5); WHITE BLOOD COUNT 10.5 X10'3 (4.5-11.0)
[2022-01-23 21:50] LABS: D-DIMER 0.32 MG/L FEU (0-0.50)
[2022-01-23 21:53] LABS: ALANINE AMINOTRANSFERASE 53 U/L (12-78); ALBUMIN 3.6 G/DL (3.4-5.0); ALBUMIN/GLOBULIN RATIO 0.9 (1.1-1.5); ALKALINE PHOSPHATASE 102 IU/L (46-116); ANION GAP 10 (8-16); ASPARTATE AMINO TRANSFERASE 27 U/L (10-37); BILIRUBIN,TOTAL 0.3 MG/DL (0.1-1.0); BLOOD UREA NITROGEN 16 MG/DL (7-18); BUN/CREATININE RATIO 16.3 (5.4-32.0); CHLORIDE 101 MMOL/L (99-107); CREATININE 0.98 MG/DL (0.60-1.10); GLUCOSE 173 MG/DL (70-104); POTASSIUM 3.9 MMOL/L (3.5-5.1); SODIUM 138 MMOL/L (135-145); TOTAL CARBON DIOXIDE 27.2 MMOL/L (24-32); TOTAL PROTEIN 7.5 G/DL (6.4-8.2); eGFR 81 ML/MIN
[2022-01-23 22:01] LABS: MAGNESIUM 1.9 MG/DL (1.5-2.4)
[2022-01-23] MEDS ORDERED: FURO-150 PO (22:13)
[2022-01-23] MEDS ORDERED: POTA-207 PO (22:13)
[2022-01-23] MEDS ORDERED: furosemide 20MG tablet PO ONE (22:20)
[2022-01-23] MEDS ORDERED: ketorolac trometh. 30mg/ml inj. IM ONE (22:20)
[2022-01-23 22:40] VITALS: BP 140/84
== END 2022-01-23 22:42 | disposition home or self-care (01) ==
LOC: ER 19:03
DX: R60.0 Localized edema (principal); F15.10 Other stimulant abuse, uncomplicated; I48.91 Unspecified atrial fibrillation; Z79.899 Other long term (current) drug therapy
CPT/HCPCS: 36415; 71045; 73130; 80053; 83735; 83880; 84484; 85025; 85379; 85610; 93005; 96372; 99285; J1885

== ENCOUNTER 2022-10-11 09:29 | Day surgery (SDC) | payer MEDICAID ==
[2022-10-06 16:19] LABS: BASOPHILS % (AUTO) 0.4 % (0-1); EOSINOPHILS # (AUTO) 0.1 X10'3 (0-0.9); EOSINOPHILS % (AUTO) 2.7 % (0-6); LYMPHOCYTES # (AUTO) 1.9 X10'3 (1.1-4.8); LYMPHOCYTES % (AUTO) 35.6 % (21-51); MEAN CORPUSCULAR HEMOGLOBIN 31.5 PG (27.0-31.0); MEAN CORPUSCULAR HGB CONC 34.3 g/dL (33.0-36.5); MEAN CORPUSCULAR VOLUME 91.9 FL (78-98); MEAN PLATELET VOLUME 8.5 FL (7.4-10.4); MONOCYTES # (AUTO) 0.6 X10'3 (0-0.9); MONOCYTES % (AUTO) 10.5 % (2-12); NEUTROPHILS # (AUTO) 2.7 X10'3 (1.8-7.7); NEUTROPHILS % (AUTO) 50.8 % (42-75); PRE OP HEMATOCRIT 43.5 % (42.0-52.0); PRE OP HEMOGLOBIN 14.9 g/dL (14.0-17.9); PRE OP PLATELET COUNT 203 X10'3 (140-440); RED BLOOD COUNT 4.73 X10'6 (4.70-6.10); RED CELL DISTRIBUTION WIDTH 12.8 % (11.5-14.5)
[2022-10-06 16:30] LABS: ALBUMIN 3.3 G/DL (3.4-5.0); ALBUMIN/GLOBULIN RATIO 0.8 (1.1-1.5); ALKALINE PHOSPHATASE 101 IU/L (46-116); BLOOD UREA NITROGEN 11 MG/DL (7-18); BUN/CREATININE RATIO 11.1 (5.4-32.0); CALCIUM 8.7 MG/DL (8.5-10.1); CHLORIDE 100 MMOL/L (99-107); CREATININE 0.99 MG/DL (0.60-1.10); PRE OP ALT 62 U/L (30-65); PRE OP ANION GAP 8 (8-16); PRE OP AST 45 U/L (10-37); PRE OP BILIRUB, TOTAL 0.3 MG/DL (0.0-1.0); PRE OP GLUCOSE 167 MG/DL (70-104); PRE OP POTASSIUM 3.8 MMOL/L (3.4-5.1); PRE OP SODIUM 136 MMOL/L (135-145); TOTAL CARBON DIOXIDE 28.3 MMOL/L (24-32); TOTAL PROTEIN 7.3 G/DL (6.4-8.2); eGFR 79 ML/MIN
[2022-10-11] VITALS (18 sets, daily range): BP systolic 120–176; BP diastolic 54–114
[~2022-10-11] VITALS: Ht 160 cm; Wt 93.0 kg
[~2022-10-11 09:29] MED LIST changes: -HYDR-4353 PO; +ceFAZolin inj. 2,000 MG in dextrose 5%-water 100 ML IV ONE; +famotidine 20mg tablet PO ONE; +ringers solution, lacted 1,000 ML IV SCH
[2022-10-11 10:42] LABS: CLARITY,URINE SLIGHTLY CLOUDY (Clear); COLOR,URINE YELLOW (Yellow); GLUCOSE, URINE NEGATIVE (Neg); KETONES,URINE NEGATIVE (Neg); LEUKOCYTE ESTERASE ,URINE MODERATE (Neg); NITRITES, URINE NEGATIVE (Neg); OCCULT BLOOD,URINE NEGATIVE (Neg); PROTEIN,URINE NEGATIVE (Neg)
[2022-10-11 10:43] LABS: UA COLLECTION TYPE CLN CATCH MIDSTREAM
[2022-10-11 10:45] LABS: BACTERIA,URINE 1+ /HPF (Neg); RBC,URINE NONE SEEN /HPF (0-2); SQUAMOUS EPITHELIAL CELL,UR FEW /LPF (FEW)
[2022-10-11] MEDS ORDERED: BUPIVAcaine 0.5% inj/PF 30 ML ONE ×2 (11:47→12:27)
[2022-10-11] MEDS ORDERED: sevoflurane 250ml liquid IH ONE (11:52)
[2022-10-11] MEDS ORDERED: midazolam 1 mg/ML 2ml injection ONE (12:05)
[2022-10-11] MEDS ORDERED: fentaNYL /PF 50mcg/ml 5ml ampule ONE (12:05)
[2022-10-11] MEDS ORDERED: rocuronium 10mg/ml inj IV ONE (12:12)
[2022-10-11] MEDS ORDERED: propofol inj 20 ML IV ONE (12:12)
[2022-10-11] MEDS ORDERED: LIDOcaine 2% (20mg/ml) 5ml vial ONE (12:13)
[2022-10-11] MEDS ORDERED: ondansetron/PF 4mg/2ml inj IV PRN (12:25)
[2022-10-11] MEDS ORDERED: morphine 2 MG/ML inj. syringe IV PRN (12:25)
[2022-10-11] MEDS ORDERED: hydrALAZINE 20mg/ml inj. IV PRN (12:25)
[2022-10-11] MEDS ORDERED: acetaminophen 1,000mg/100ml IV 100 ML IV PRN (12:25)
[2022-10-11] MEDS ORDERED: proCHLORperazine 10 MG/2 ml inj IV PRN (12:25)
[2022-10-11] MEDS ORDERED: meperidine/PF 25mg/ml syringe IV PRN ×3 (12:25)
[2022-10-11] MEDS ORDERED: ringers solution, lacted 1,000 ML IV SCH (12:25)
[2022-10-11] MEDS ORDERED: morphine 4 MG/ML inj SYRINge IV PRN (12:25)
[2022-10-11] MEDS ORDERED: BUPIVACAINE liposomal/PF 13.3 MG/ML vial IM ONE (12:27)
[2022-10-11] MEDS ORDERED: ondansetron/PF 4mg/2ml inj ONE (12:35)
[2022-10-11] MEDS ORDERED: dexamethasone sod phosphate 4mg/ml inj. ONE (12:35)
[2022-10-11] MEDS ORDERED: BUPIVAcaine 0.5% inj/PF 30 ml vial IJ ONE ×2 (12:44→12:45)
[2022-10-11] MEDS ORDERED: sugammadex 200mg/2ml injection IV ONE (13:16)
--- NOTE | 2022-10-11 13:25 | NUR ---
Received from OR via [facility], accompanied by Anesthesiologist and report given by CHADWICK Anesthesiologist. PATIENT WAKING UP, DENIES PAIN, V/S WNL, PIV 20G RIGHT HAND, DERMABONDED LAPS SITES C/D/I TO ABDOMEN. Addendum: 10/11/22 at 1358 by Lee Blackwood RN Amended: Links added.
[2022-10-11] MEDS: labetalol 20mg/4ml (5mg/ml) syringe IV PRN ×2 (13:41→13:48)
--- NOTE | 2022-10-11 16:05 | NUR ---
ALL DISCHARGE CRITERIA HAS BEEN MET. VSS, PAIN AT A TOLERABLE LEVEL, VOIDING AND ABLE TO SAFELY AMBULATE AND TRANSFER SELF. IV TAKEN OUT WITHOUT ANY COMPLICATIONS. ALL DISCHARGE INSTRUCTIONS COVERED WITH PATIENT AND ALL QUESTIONS ANSWERED. PATIENT TAKEN OUT VIA WHEELCHAIR WITH ALL BELONGINGS TO PERSONAL VEHICLE WHERE FAMILY DROVE PATIENT HOME. Addendum: 10/11/22 at 1617 by Lee Blackwood RN Amended: Links added.
== END 2022-10-11 16:05 | disposition home or self-care (01) ==
LOC: PAS 09:29
PROVIDERS: ATTEND Surgery
DX: K42.9 Umbilical hernia without obstruction or gangrene (principal); D17.79 Benign lipomatous neoplasm of other sites; F41.9 Anxiety disorder, unspecified; I10 Essential (primary) hypertension; Z79.899 Other long term (current) drug therapy; Z98.890 Other specified postprocedural states; G47.30 Sleep apnea, unspecified; Z72.89 Other problems related to lifestyle; Z96.652 Presence of left artificial knee joint; Z87.891 Personal history of nicotine dependence
CPT/HCPCS: 22903; 36415; 49652; 80053; 81001; 82948; 85025; 87088; 93005; C1781; C9290; J0131; J0690; J1100; J2175; J2250; J2270; J2405; J2704; J3010; J3490; J7030; J7060; J7120; S0020; Z7506; Z7508; Z7512; A4615; A4618; A7000

== ENCOUNTER 2024-04-04 20:27 | Inpatient (IN) | payer MEDICAID ==
[~2024-04-04] VITALS: Ht 162.6 cm; Wt 81.8 kg
[~2024-04-04 20:27] MED LIST changes: -ceFAZolin inj. 2,000 MG in dextrose 5%-water 100 ML IV ONE; -famotidine 20mg tablet PO ONE; -ringers solution, lacted 1,000 ML IV SCH
[2024-04-04 20:58] LABS: BASOPHILS % (AUTO) 0.4 % (0-1); EOSINOPHILS # (AUTO) 0.2 X10'3 (0-0.9); HEMATOCRIT 47.5 % (42.0-52.0); HEMOGLOBIN 16.2 g/dl (14.0-17.9); LYMPHOCYTES # (AUTO) 2.8 X10'3 (1.1-4.8); LYMPHOCYTES % (AUTO) 28.5 % (21-51); MEAN CORPUSCULAR HEMOGLOBIN 31.2 PG (27.0-31.0); MEAN CORPUSCULAR HGB CONC 34.2 g/dL (33.0-36.5); MEAN CORPUSCULAR VOLUME 91.4 FL (78-98); MONOCYTES # (AUTO) 0.8 X10'3 (0-0.9); MONOCYTES % (AUTO) 8.3 % (2-12); NEUTROPHILS % (AUTO) 60.8 % (42-75); PLATELET COUNT 227 X10'3 (140-440); RED BLOOD COUNT 5.19 X10'6 (4.70-6.10); RED CELL DISTRIBUTION WIDTH 12.4 % (11.5-14.5); WHITE BLOOD COUNT 9.9 X10'3 (4.5-11.0)
[2024-04-04 21:16] LABS: ALANINE AMINOTRANSFERASE 61 U/L (12-78); ALBUMIN 3.3 G/DL (3.4-5.0); ALBUMIN/GLOBULIN RATIO 0.8 (1.1-1.5); ALKALINE PHOSPHATASE 192 IU/L (46-116); ANION GAP 11 (8-16); ASPARTATE AMINO TRANSFERASE 27 U/L (10-37); BILIRUBIN,TOTAL 0.7 MG/DL (0.1-1.0); BLOOD UREA NITROGEN 14 MG/DL (7-18); BUN/CREATININE RATIO 9.7 (10.0-20.0); CALCIUM 9.9 MG/DL (8.5-10.1); CHLORIDE 89 MMOL/L (99-107); CREATININE 1.44 MG/DL (0.60-1.10); POTASSIUM 4.2 MMOL/L (3.5-5.1); PRO BRAIN NATRIURETIC PEPTIDE 657 PG/ML (0-125); SODIUM 126 MMOL/L (135-145); TOTAL CARBON DIOXIDE 25.8 MMOL/L (24-32); TOTAL PROTEIN 7.4 G/DL (6.4-8.2); eCRCL 49 ML/MIN; eGFR 51 ML/MIN
[2024-04-04 21:27] LABS: GLUCOSE 718 MG/DL (70-104)
[2024-04-04] MEDS: normal saline 1000ml 1,000 ML IV STA ×2 (22:13)
[2024-04-04] MEDS: insulin regular, human 10 units/0.1 ml syringe SQ ONE (22:36)
[2024-04-04] MEDS: magnesium 2GM in 50ml NS 50 ML IV ONE (23:27)
[2024-04-04] MEDS: metoprolol tartrate 1mg/ml inj IV ONE (23:27)
[2024-04-05] VITALS (7 sets, daily range): BP systolic 122–129; BP diastolic 70–81; PULSE 64–82; RESP 12–18; TEMP 96.9–97.7; O2SAT 93–98
[2024-04-05 00:01] LABS: MAGNESIUM 1.9 MG/DL (1.5-2.4)
[2024-04-05] MEDS: sotalol HCl 40mg (1/2 tablet) PO ONE (00:53)
[2024-04-05] MEDS ORDERED: NO HOME MEDS (01:17)
[2024-04-05] MEDS ORDERED: magnesium hydroxide 30ml (MOM) UD suspension PO PRN (01:20)
[2024-04-05] MEDS ORDERED: potassium Cl 40MEQ/1/2NS 520ml 520 ML IV PRN (01:20)
[2024-04-05] MEDS ORDERED: magnesium Cl slow-release 64mg tablet PO PRN (01:20)
[2024-04-05] MEDS ORDERED: ondansetron/PF 4mg/2ml inj IV PRN (01:20)
[2024-04-05] MEDS ORDERED: potassium Cl 20 mEq SR tablet PO PRN ×2 (01:20)
[2024-04-05] MEDS ORDERED: magnesium 4gm in 100ml NS 100 ML IV PRN (01:20)
[2024-04-05] MEDS ORDERED: magnesium 2GM in 50ml NS 50 ML IV PRN (01:20)
[2024-04-05] MEDS ORDERED: acetaminophen 325mg tablet PO PRN (01:20)
[2024-04-05] MEDS ORDERED: mag hydrox/Alum hydrox/simeth 30ml oral suspension PO PRN (01:20)
[2024-04-05] MEDS ORDERED: glucagon, human recombinant 1mg kit SUBCUT PRN (01:25)
[2024-04-05] MEDS ORDERED: DEXTROSE 15 GM of carb/4 tabs (each vial/BOTTLE has 4 tablets) PO PRN ×2 (01:25)
[2024-04-05] MEDS ORDERED: dextrose 50%-water 50ml dispensing syringe IV PRN ×2 (01:25)
[2024-04-05 02:04] LABS: BILIRUBIN,URINE NEGATIVE (Neg); CLARITY,URINE CLEAR (Clear); COLOR,URINE STRAW (Yellow); GLUCOSE, URINE >=1000 mg/dl (Neg); KETONES,URINE NEGATIVE (Neg); LEUKOCYTE ESTERASE ,URINE NEGATIVE (Neg); NITRITES, URINE NEGATIVE (Neg); OCCULT BLOOD,URINE TRACE-INTACT (Neg); PROTEIN,URINE NEGATIVE (Neg); UROBILINOGEN,URINE 0.2 E.U/dL (0.2-1.0)
[2024-04-05] MEDS: insulin glargine (Lantus) pen - multi-dose SQ SCH (02:08)
[2024-04-05] MEDS: normal saline 1000ml 1,000 ML IV SCH (02:09)
[2024-04-05 03:17] LABS: OSMOLALITY 307 MOSM/K (280-300)
[2024-04-05 03:17] LABS: UA COLLECTION TYPE CLN CATCH MIDSTREAM
[2024-04-05 03:21] LABS: WBC,URINE 0-4 /HPF (0-4)
[2024-04-05 03:24] LABS: BACTERIA,URINE 1+ /HPF (Neg)
[2024-04-05 03:25] LABS: MUCUS STRANDS NONE SEEN /LPF (Neg); SQUAMOUS EPITHELIAL CELL,UR FEW /LPF (FEW)
[2024-04-05] MEDS: INSULIN LISPRO 100 UNIT/ML INSULN.PEN MULTI-DOSE SQ SCH (07:33)
[2024-04-05] MEDS: heparin, porcine 5000 units/ml vial SQ SCH (07:39)
[2024-04-05] MEDS: K and/or MAG REPLACEMENT MC SCH (08:00)
[2024-04-05 08:34] LABS: HEMOGLOBIN A1C > 12.0 % (4.5-6.2)
[2024-04-05] MEDS: PERFLUTREN PROTEIN-A MICROSPHR (Optison) 0.22 MG/ML 3ML VIAL IV ONE (10:00)
[2024-04-05] MEDS: furosemide 40mg/4ml inj IV SCH (11:00)
[2024-04-05] MEDS ORDERED: haloperidol lactate 5mg/ml inj IM PRN (11:20)
[2024-04-05] MEDS ORDERED: chlordiazePOXIDE 5mg capsule PO PRN (11:25)
[2024-04-05] MEDS: sotalol HCl 40mg (1/2 tablet) PO SCH (15:00)
[2024-04-05] MEDS: LORazepam 1 MG tablet PO PRN (15:00)
[2024-04-06 02:28] VITALS: BP 108/61; PULSE 68; RESP 19; TEMP 98.6; O2SAT 94
[2024-04-06 06:52] LABS: BASOPHILS % (AUTO) 0.4 % (0-1); EOSINOPHILS # (AUTO) 0.2 X10'3 (0-0.9); EOSINOPHILS % (AUTO) 2.2 % (0-6); HEMATOCRIT 45.2 % (42.0-52.0); HEMOGLOBIN 15.4 g/dl (14.0-17.9); LYMPHOCYTES # (AUTO) 2.4 X10'3 (1.1-4.8); LYMPHOCYTES % (AUTO) 33.3 % (21-51); MEAN CORPUSCULAR HEMOGLOBIN 31.1 PG (27.0-31.0); MEAN CORPUSCULAR HGB CONC 34.1 g/dL (33.0-36.5); MEAN CORPUSCULAR VOLUME 91.1 FL (78-98); MEAN PLATELET VOLUME 10.3 FL (7.4-10.4); MONOCYTES # (AUTO) 0.6 X10'3 (0-0.9); MONOCYTES % (AUTO) 8.3 % (2-12); NEUTROPHILS # (AUTO) 4.1 X10'3 (1.8-7.7); NEUTROPHILS % (AUTO) 55.8 % (42-75); PLATELET COUNT 209 X10'3 (140-440); RED BLOOD COUNT 4.96 X10'6 (4.70-6.10); RED CELL DISTRIBUTION WIDTH 12.8 % (11.5-14.5); WHITE BLOOD COUNT 7.3 X10'3 (4.5-11.0)
[2024-04-06 07:04] LABS: PROTHROMBIN TIME 10.7 SECONDS (9.0-12.0)
[2024-04-06 07:19] LABS: ALANINE AMINOTRANSFERASE 45 U/L (12-78); ALBUMIN 2.7 G/DL (3.4-5.0); ALBUMIN/GLOBULIN RATIO 0.7 (1.1-1.5); ALKALINE PHOSPHATASE 106 IU/L (46-116); AMYLASE 48 U/L (25-115); ANION GAP 9 (8-16); ASPARTATE AMINO TRANSFERASE 26 U/L (10-37); BILIRUBIN,TOTAL 0.5 MG/DL (0.1-1.0); BLOOD UREA NITROGEN 12 MG/DL (7-18); CALCIUM 8.6 MG/DL (8.5-10.1); CHLORIDE 100 MMOL/L (99-107); CHOL/HDL RATIO 3.8 (0.00-4.99); CHOLESTEROL 141 MG/DL (0-200); GLUCOSE 288 MG/DL (70-104); HDL CHOLESTEROL 37 MG/DL (35-60); LDL CHOLESTEROL 85 MG/DL (50-100); LIPASE 30 U/L (16-77); MAGNESIUM 1.9 MG/DL (1.5-2.4); PHOSPHORUS 3.8 MG/DL (2.3-4.5); SODIUM 134 MMOL/L (135-145); TOTAL CARBON DIOXIDE 25.4 MMOL/L (24-32); TOTAL PROTEIN 6.4 G/DL (6.4-8.2); TRIGLYCERIDES 179 MG/DL (20-135); eCRCL 88 ML/MIN; eGFR > 90 ML/MIN
[2024-04-06 07:24] VITALS: BP 128/77; PULSE 67; RESP 15; TEMP 97.2; O2SAT 95
[2024-04-06 11:00] VITALS: BP 136/70; PULSE 81; RESP 14; TEMP 98.3; O2SAT 96
[2024-04-06] MEDS ORDERED: ondansetron 4mg rapidly disintigrating tab PO PRN (11:30)
[2024-04-06 18:00] VITALS: BP 134/47; PULSE 76; RESP 16; TEMP 97.3; O2SAT 93
[2024-04-06] MEDS: sotalol 80mg tablet PO SCH (19:35)
[2024-04-06 20:15] VITALS: RESP 16; O2SAT 95
[2024-04-06] MEDS: insulin glargine (Lantus) pen - multi-dose SQ SCH (21:41)
[2024-04-06 22:00] VITALS: BP 111/61; PULSE 102; RESP 18; TEMP 97.6; O2SAT 94
[2024-04-07 02:00] VITALS: BP 105/57; PULSE 106; RESP 20; TEMP 97.7; O2SAT 95
[2024-04-07 06:00] VITALS: BP 133/72; PULSE 66; RESP 18; TEMP 97.2; O2SAT 94
[2024-04-07 06:39] LABS: BASOPHILS % (AUTO) 0.4 % (0-1); EOSINOPHILS # (AUTO) 0.2 X10'3 (0-0.9); EOSINOPHILS % (AUTO) 2.4 % (0-6); HEMATOCRIT 47.5 % (42.0-52.0); HEMOGLOBIN 16.3 g/dl (14.0-17.9); LYMPHOCYTES # (AUTO) 2.7 X10'3 (1.1-4.8); LYMPHOCYTES % (AUTO) 35.3 % (21-51); MEAN CORPUSCULAR HEMOGLOBIN 31.1 PG (27.0-31.0); MEAN CORPUSCULAR HGB CONC 34.3 g/dL (33.0-36.5); MEAN CORPUSCULAR VOLUME 90.9 FL (78-98); MEAN PLATELET VOLUME 10.7 FL (7.4-10.4); MONOCYTES # (AUTO) 0.7 X10'3 (0-0.9); MONOCYTES % (AUTO) 9.1 % (2-12); NEUTROPHILS % (AUTO) 52.8 % (42-75); PLATELET COUNT 217 X10'3 (140-440); RED BLOOD COUNT 5.22 X10'6 (4.70-6.10); RED CELL DISTRIBUTION WIDTH 12.4 % (11.5-14.5); WHITE BLOOD COUNT 7.6 X10'3 (4.5-11.0)
[2024-04-07 06:46] LABS: PROTHROMBIN TIME 10.5 SECONDS (9.0-12.0)
[2024-04-07 06:57] LABS: ALANINE AMINOTRANSFERASE 44 U/L (12-78); ALBUMIN 2.8 G/DL (3.4-5.0); ALBUMIN/GLOBULIN RATIO 0.7 (1.1-1.5); ALKALINE PHOSPHATASE 110 IU/L (46-116); AMYLASE 51 U/L (25-115); ANION GAP 8 (8-16); ASPARTATE AMINO TRANSFERASE 26 U/L (10-37); BILIRUBIN,TOTAL 0.5 MG/DL (0.1-1.0); BLOOD UREA NITROGEN 15 MG/DL (7-18); BUN/CREATININE RATIO 16.3 (10.0-20.0); CALCIUM 8.7 MG/DL (8.5-10.1); CHLORIDE 100 MMOL/L (99-107); CREATININE 0.92 MG/DL (0.60-1.10); GLUCOSE 229 MG/DL (70-104); LIPASE 37 U/L (16-77); MAGNESIUM 1.9 MG/DL (1.5-2.4); PHOSPHORUS 3.8 MG/DL (2.3-4.5); POTASSIUM 3.8 MMOL/L (3.5-5.1); SODIUM 136 MMOL/L (135-145); TOTAL CARBON DIOXIDE 28.3 MMOL/L (24-32); TOTAL PROTEIN 6.8 G/DL (6.4-8.2); eCRCL 77 ML/MIN; eGFR 86 ML/MIN
[2024-04-07] MEDS: pantoprazole 40mg Tablet.DR PO SCH (08:43)
[2024-04-07] MEDS ORDERED: LANTUS SQ (10:18)
[2024-04-07] MEDS ORDERED: SOTA80TA73 PO (10:18)
[2024-04-07] MEDS ORDERED: INSU100V49 SQ (10:18)
[2024-04-07] MEDS ORDERED: PANT40TA54 PO (10:21)
[2024-04-07] MEDS ORDERED: ATOR20TA66 PO (10:21)
[2024-04-07] MEDS ORDERED: FURO-150 PO (10:21)
[2024-04-07 11:00] VITALS: BP 113/60; PULSE 63; RESP 18; TEMP 97; O2SAT 94
[2024-04-07] MEDS ORDERED: insulin glargine (Lantus) pen - multi-dose SQ SCH (21:00)
== END 2024-04-07 11:53 | disposition home health service (06) | DRG 201 ==
LOC: ER 20:28 → ED HOLD 04-05 01:22 → PCU 3S 04-05 03:46
PROVIDERS: ADMIT Surgery Surgical Critical Care; ATTEND Internal Medicine
DX: I47.20 Ventricular tachycardia, unspecified (principal); N17.0 Acute kidney failure with tubular necrosis; I45.6 Pre-excitation syndrome; E66.9 Obesity, unspecified; E86.0 Dehydration; I25.10 Atherosclerotic heart disease of native coronary artery without angina pectoris; I48.91 Unspecified atrial fibrillation; Z96.611 Presence of right artificial shoulder joint; Z96.652 Presence of left artificial knee joint; G47.33 Obstructive sleep apnea (adult) (pediatric); M19.09 Primary osteoarthritis, other specified site; E87.1 Hypo-osmolality and hyponatremia; E11.65 Type 2 diabetes mellitus with hyperglycemia; Z82.49 Family history of ischemic heart disease and other diseases of the circulatory system; Z68.31 Body mass index [BMI] 31.0-31.9, adult
CPT/HCPCS: 36415; 71045; 80053; 80061; 81001; 82150; 82948; 83036; 83690; 83735; 83880; 83930; 84100; 84484; 85025; 85610; 87081; 93005; 93306; 96365; 96372; 96375; 97116; 97161; 97530; 99285; A4649; G0378; J1644; J1815; J1940; J3475; J3490; J7030

== ENCOUNTER 2024-07-09 14:58 | Inpatient (IN) | payer MEDICAID ==
[~2024-07-09] VITALS: Ht 165.1 cm; Wt 81.8 kg
[~2024-07-09 14:58] MED LIST changes: +ATOR20TA66 PO; +FURO-150 PO; +INSU100V49 SQ; +LANTUS SQ; +NO HOME MEDS; +PANT40TA54 PO; +SOTA80TA73 PO; +adenosine 3mg/ml 2ml vial IV ONE; +etomidate 2mg/ml inj. ONE
[2024-07-09] MEDS: ondansetron 4mg rapidly disintigrating tab PO ONE (15:30)
[2024-07-09] MEDS: adenosine 3mg/ml 2ml vial IV ONE ×2 (15:33)
[2024-07-09] MEDS: etomidate 2mg/ml inj. IV ONE (15:34)
[2024-07-09] MEDS: ondansetron/PF 4mg/2ml inj IV ONE (15:44)
[2024-07-09 15:55] LABS: BASOPHILS % (AUTO) 0.1 % (0-1); EOSINOPHILS % (AUTO) 0 % (0-6); HEMATOCRIT 44.4 % (42.0-52.0); HEMOGLOBIN 14.8 g/dl (14.0-17.9); LYMPHOCYTES # (AUTO) 1.7 X10'3 (1.1-4.8); MEAN CORPUSCULAR HEMOGLOBIN 30.2 PG (27.0-31.0); MEAN CORPUSCULAR HGB CONC 33.3 g/dL (33.0-36.5); MEAN CORPUSCULAR VOLUME 90.8 FL (78-98); MEAN PLATELET VOLUME 11.1 FL (7.4-10.4); MONOCYTES # (AUTO) 1.6 X10'3 (0-0.9); MONOCYTES % (AUTO) 5.5 % (2-12); NEUTROPHILS # (AUTO) 25.3 X10'3 (1.8-7.7); NEUTROPHILS % (AUTO) 88.4 % (42-75); PLATELET COUNT 200 X10'3 (140-440); RED BLOOD COUNT 4.89 X10'6 (4.70-6.10); RED CELL DISTRIBUTION WIDTH 13.2 % (11.5-14.5)
[2024-07-09 15:59] LABS: WHITE BLOOD COUNT 28.6 X10'3 (4.5-11.0)
[2024-07-09 16:00] LABS: ALANINE AMINOTRANSFERASE 178 U/L (12-78); ALBUMIN 2.6 G/DL (3.4-5.0); ALBUMIN/GLOBULIN RATIO 0.5 (1.1-1.5); ALKALINE PHOSPHATASE 119 IU/L (46-116); ANION GAP 13 (8-16); ASPARTATE AMINO TRANSFERASE 299 U/L (10-37); BILIRUBIN,TOTAL 1.8 MG/DL (0.1-1.0); BLOOD UREA NITROGEN 56 MG/DL (7-18); BUN/CREATININE RATIO 29.5 (10.0-20.0); CALCIUM 9.4 MG/DL (8.5-10.1); CHLORIDE 88 MMOL/L (99-107); GLUCOSE 259 MG/DL (70-104); POTASSIUM 4.7 MMOL/L (3.5-5.1); SODIUM 123 MMOL/L (135-145); TOTAL CARBON DIOXIDE 21.9 MMOL/L (24-32); TOTAL PROTEIN 7.8 G/DL (6.4-8.2); eCRCL 39 ML/MIN; eGFR 37 ML/MIN
[2024-07-09 16:07] LABS: PRO BRAIN NATRIURETIC PEPTIDE 7939 PG/ML (0-125)
[2024-07-09] MEDS: magnesium sulf-water 2g/50mL 50 ML IV ONE (16:13)
[2024-07-09 16:26] LABS: PLATELET ESTIMATE NORMAL; TOTAL CELLS COUNTED 100
[2024-07-09 16:27] LABS: POLYCHROMASIA FEW
[2024-07-09] MEDS: normal saline 1000ML IV soln IVB ONE (17:02)
[2024-07-09] MEDS: aspirin 81mg tab.chew PO ONE (17:05)
[2024-07-09] MEDS: CefTRIAXone 2gm/D5W 50ml BAG 50 ML IV ONE (17:22)
[2024-07-09] MEDS: levoFLOXACIN-Levaquin 750MG/D5 150 ML IV ONE (18:04)
[2024-07-09] MEDS ORDERED: ondansetron/PF 4mg/2ml inj IV PRN (18:15)
[2024-07-09] MEDS ORDERED: potassium Cl 20 mEq SR tablet PO PRN ×2 (18:15)
[2024-07-09] MEDS ORDERED: acetaminophen 325mg tablet PO PRN (18:15)
[2024-07-09 18:33] LABS: D-DIMER 1.76 MG/L FEU (0-0.50)
[2024-07-09] MEDS ORDERED: DEXTROSE 15 GM of carb/4 tabs (each vial/BOTTLE has 4 tablets) PO PRN ×2 (19:00)
[2024-07-09] MEDS ORDERED: dextrose 50%-water 50ml dispensing syringe IV PRN ×2 (19:00)
[2024-07-09] MEDS ORDERED: glucagon, human recombinant 1mg kit SUBCUT PRN (19:00)
[2024-07-09 19:28] LABS: APTT 29 SECONDS (22-32); PROTHROMBIN TIME 10.6 SECONDS (9.0-12.0)
[2024-07-09] MEDS: sotalol 80mg tablet PO SCH (20:00)
[2024-07-09] MEDS ORDERED: heparin, porcine 5000 units/ml vial SQ SCH (20:00)
[2024-07-09] MEDS: docusate sod 100mg capsule PO SCH (20:00)
[2024-07-09] MEDS: MESSAGE TO NURSING IV ONE (20:18)
[2024-07-09] MEDS: heparin 10,000 units/1 ML INJ IV ONE (20:42)
[2024-07-09] MEDS: heparin 25,000 UNIT/250ml bag 250 ML IV PRN (20:45)
[2024-07-09] MEDS: normal saline 1000ml 1,000 ML IV SCH (20:46)
[2024-07-09 21:31] LABS: BILIRUBIN,URINE NEGATIVE (Neg); CLARITY,URINE SLIGHTLY CLOUDY (Clear); COLOR,URINE YELLOW (Yellow); GLUCOSE, URINE 100 mg/dl (Neg); KETONES,URINE NEGATIVE (Neg); LEUKOCYTE ESTERASE ,URINE MODERATE (Neg); NITRITES, URINE NEGATIVE (Neg); OCCULT BLOOD,URINE NEGATIVE (Neg); PH,URINE 5.5 (4.8-8.0); PROTEIN,URINE NEGATIVE (Neg)
[2024-07-09 21:33] LABS: UA COLLECTION TYPE CLN CATCH MIDSTREAM
[2024-07-09 21:44] LABS: URINE AMPHETAMINE SCREEN POSITIVE (Neg); URINE BARBITUATE SCREEN NEGATIVE (Neg); URINE BENZODIAZEPINES SCREEN NEGATIVE (Neg); URINE CANNABINOID SCREEN NEGATIVE (Neg); URINE COCAINE SCREEN NEGATIVE (Neg); URINE METHADONE SCREEN NEGATIVE (Neg); URINE OPIATE SCREEN POSITIVE (Neg); URINE PHENCYCLIDINE SCREEN NEGATIVE (Neg)
[2024-07-09 21:46] LABS: BACTERIA,URINE 2+ /HPF (Neg); HYALINE CASTS 0-3 /LPF (NEGATIVE); MUCUS STRANDS FEW /LPF (Neg); RBC,URINE 0-2 /HPF (0-2); SQUAMOUS EPITHELIAL CELL,UR FEW /LPF (FEW); WBC,URINE 20-30 /HPF (0-4)
[2024-07-09 22:00] VITALS: BP 143/96; RESP 16; TEMP 98.6
[2024-07-09] MEDS: morphine 2 MG/ML inj. syringe IV PRN (22:42)
[2024-07-09] MEDS: INSULIN LISPRO 100 UNIT/ML INSULN.PEN MULTI-DOSE SQ SCH (22:45)
[2024-07-09] MEDS: insulin glargine (Lantus) pen - multi-dose SQ SCH (22:46)
[2024-07-10] VITALS (7 sets, daily range): BP systolic 111–127; BP diastolic 62–85; PULSE 59–78; RESP 12–22; TEMP 96.9–98.1; O2SAT 91–99
[2024-07-10] MEDS: HYDROcodone/acetaminophen 5mg/325mg tablet PO PRN (00:57)
[2024-07-10] MEDS: LORazepam 1 MG tablet PO PRN (05:13)
[2024-07-10 05:32] LABS: BASOPHILS # (AUTO) 0.1 X10'3 (0-0.2); BASOPHILS % (AUTO) 0.4 % (0-1); EOSINOPHILS # (AUTO) 0.1 X10'3 (0-0.9); EOSINOPHILS % (AUTO) 0.5 % (0-6); HEMATOCRIT 39.8 % (42.0-52.0); HEMOGLOBIN 13.5 g/dl (14.0-17.9); LYMPHOCYTES # (AUTO) 1.7 X10'3 (1.1-4.8); LYMPHOCYTES % (AUTO) 10.4 % (21-51); MEAN CORPUSCULAR HEMOGLOBIN 31.2 PG (27.0-31.0); MEAN CORPUSCULAR HGB CONC 33.8 g/dL (33.0-36.5); MEAN CORPUSCULAR VOLUME 92.3 FL (78-98); MEAN PLATELET VOLUME 10.6 FL (7.4-10.4); MONOCYTES # (AUTO) 1.5 X10'3 (0-0.9); MONOCYTES % (AUTO) 9.1 % (2-12); NEUTROPHILS # (AUTO) 13.4 X10'3 (1.8-7.7); NEUTROPHILS % (AUTO) 79.6 % (42-75); PLATELET COUNT 167 X10'3 (140-440); RED BLOOD COUNT 4.32 X10'6 (4.70-6.10); RED CELL DISTRIBUTION WIDTH 13.1 % (11.5-14.5); WHITE BLOOD COUNT 16.8 X10'3 (4.5-11.0)
[2024-07-10 06:48] LABS: ALANINE AMINOTRANSFERASE 151 U/L (12-78); ALKALINE PHOSPHATASE 106 IU/L (46-116); AMYLASE 73 U/L (25-115); ANION GAP 6 (8-16); ASPARTATE AMINO TRANSFERASE 141 U/L (10-37); BILIRUBIN,TOTAL 0.8 MG/DL (0.1-1.0); BLOOD UREA NITROGEN 46 MG/DL (7-18); BUN/CREATININE RATIO 29.5 (10.0-20.0); CALCIUM 8.6 MG/DL (8.5-10.1); CHLORIDE 96 MMOL/L (99-107); CREATININE 1.56 MG/DL (0.60-1.10); GLUCOSE 175 MG/DL (70-104); LIPASE 312 U/L (16-77); MAGNESIUM 2.3 MG/DL (1.5-2.4); PHOSPHORUS 4.5 MG/DL (2.3-4.5); POTASSIUM 3.8 MMOL/L (3.5-5.1); SODIUM 131 MMOL/L (135-145); TOTAL CARBON DIOXIDE 29.3 MMOL/L (24-32); TOTAL PROTEIN 7.2 G/DL (6.4-8.2); eCRCL 47 ML/MIN; eGFR 47 ML/MIN
[2024-07-10 07:24] LABS: ALBUMIN 2.2 G/DL (3.4-5.0); ALBUMIN/GLOBULIN RATIO 0.4 (1.1-1.5)
[2024-07-10] MEDS: heparin 10,000 units/1 ML INJ IV PRN (07:52)
[2024-07-10] MEDS: azithromycin/NS 500mg/250ml 250 ML IV SCH (07:56)
[2024-07-10] MEDS: MESSAGE TO NURSING IV ONE ×2 (07:56→18:14)
[2024-07-10] MEDS: pantoprazole 40 MG vial IV SCH (07:56)
[2024-07-10] MEDS: CefTRIAXone/D5W-Rocephin 1gm 50 ML IV SCH (07:56)
[2024-07-10 08:07] LABS: HEMOGLOBIN A1C 7.8 % (4.5-6.2)
[2024-07-10] MEDS ORDERED: ondansetron 4mg rapidly disintigrating tab PO PRN (13:55)
[2024-07-11] MEDS: MESSAGE TO NURSING IV ONE (02:38)
[2024-07-11 06:00] VITALS: PULSE 70; RESP 22; TEMP 97.4; O2SAT 91
[2024-07-11 07:46] LABS: LYMPHOCYTES % (AUTO) 15.6 % (21-51); MONOCYTES % (AUTO) 9.1 % (2-12); RED CELL DISTRIBUTION WIDTH 13.6 % (11.5-14.5)
[2024-07-11 07:48] LABS: BASOPHILS % (AUTO) 0.4 % (0-1); EOSINOPHILS # (AUTO) 0.3 X10'3 (0-0.9); EOSINOPHILS % (AUTO) 2.5 % (0-6); HEMATOCRIT 41.6 % (42.0-52.0); HEMOGLOBIN 14.1 g/dl (14.0-17.9); LYMPHOCYTES # (AUTO) 1.7 X10'3 (1.1-4.8); MEAN CORPUSCULAR HEMOGLOBIN 31.4 PG (27.0-31.0); MEAN CORPUSCULAR VOLUME 92.4 FL (78-98); NEUTROPHILS # (AUTO) 7.8 X10'3 (1.8-7.7); NEUTROPHILS % (AUTO) 72.4 % (42-75); PLATELET COUNT 231 X10'3 (140-440); WHITE BLOOD COUNT 10.7 X10'3 (4.5-11.0)
[2024-07-11 08:00] VITALS: RESP 18; O2SAT 93
[2024-07-11 08:47] LABS: ALANINE AMINOTRANSFERASE 97 U/L (12-78); ALBUMIN 1.9 G/DL (3.4-5.0); ALBUMIN/GLOBULIN RATIO 0.4 (1.1-1.5); ALKALINE PHOSPHATASE 85 IU/L (46-116); AMYLASE 537 U/L (25-115); ANION GAP 8 (8-16); ASPARTATE AMINO TRANSFERASE 55 U/L (10-37); BILIRUBIN,TOTAL 0.4 MG/DL (0.1-1.0); BLOOD UREA NITROGEN 35 MG/DL (7-18); CALCIUM 8.8 MG/DL (8.5-10.1); CHLORIDE 101 MMOL/L (99-107); CREATININE 1.13 MG/DL (0.60-1.10); GLUCOSE 151 MG/DL (70-104); MAGNESIUM 2.6 MG/DL (1.5-2.4); PHOSPHORUS 4.4 MG/DL (2.3-4.5); SODIUM 135 MMOL/L (135-145); TOTAL CARBON DIOXIDE 25.6 MMOL/L (24-32); TOTAL PROTEIN 6.5 G/DL (6.4-8.2); eCRCL 65 ML/MIN; eGFR 68 ML/MIN
[2024-07-11 09:04] LABS: LARGE PLATELETS MODERATE; PLATELET ESTIMATE NORMAL
[2024-07-11 10:01] LABS: LIPASE > 375 U/L (16-77)
[2024-07-11 11:00] VITALS: BP 107/41; PULSE 73; RESP 15; TEMP 96.9; O2SAT 93
[2024-07-11] MEDS: HYDROcodone/acetaminophen 10/325mg tab PO PRN (12:42)
[2024-07-11 15:00] VITALS: BP 119/72; PULSE 75; RESP 18; TEMP 97.1; O2SAT 97
[2024-07-11] MEDS: metoprolol succinate 25mg (24-HOUR) SR. Tablet PO SCH (15:20)
[2024-07-11] MEDS ORDERED: iohexol 350MG/ML 100ml bottle IV ONE (16:52)
[2024-07-11 18:00] VITALS: BP 117/65; PULSE 71; RESP 17; TEMP 97.8; O2SAT 91
[2024-07-11] MEDS: heparin, porcine 5000 units/ml vial SQ SCH (21:30)
[2024-07-11] MEDS: insulin glargine (Lantus) pen - multi-dose SQ SCH (21:36)
[2024-07-11 22:00] VITALS: BP 108/70; PULSE 75; RESP 15; TEMP 96.8; O2SAT 95
[2024-07-11] MEDS: haloperidol 5mg tablet PO PRN (23:22)
[2024-07-12 02:00] VITALS: BP 107/56; PULSE 79; RESP 14; TEMP 98; O2SAT 92
[2024-07-12 06:00] VITALS: BP 125/66; PULSE 89; RESP 18; TEMP 99.7; O2SAT 95
[2024-07-12 08:00] VITALS: RESP 19; O2SAT 89
[2024-07-12 09:43] LABS: BASOPHILS # (AUTO) 0.1 X10'3 (0-0.2); BASOPHILS % (AUTO) 0.6 % (0-1); EOSINOPHILS # (AUTO) 0.3 X10'3 (0-0.9); EOSINOPHILS % (AUTO) 2.8 % (0-6); HEMATOCRIT 38.9 % (42.0-52.0); HEMOGLOBIN 12.8 g/dl (14.0-17.9); LYMPHOCYTES # (AUTO) 1.6 X10'3 (1.1-4.8); LYMPHOCYTES % (AUTO) 13.3 % (21-51); MEAN CORPUSCULAR HEMOGLOBIN 30.4 PG (27.0-31.0); MEAN CORPUSCULAR HGB CONC 33.1 g/dL (33.0-36.5); MEAN PLATELET VOLUME 9.8 FL (7.4-10.4); MONOCYTES # (AUTO) 1.1 X10'3 (0-0.9); MONOCYTES % (AUTO) 9.4 % (2-12); NEUTROPHILS # (AUTO) 8.9 X10'3 (1.8-7.7); NEUTROPHILS % (AUTO) 73.9 % (42-75); PLATELET COUNT 261 X10'3 (140-440); RED BLOOD COUNT 4.23 X10'6 (4.70-6.10); RED CELL DISTRIBUTION WIDTH 13.5 % (11.5-14.5); WHITE BLOOD COUNT 12.1 X10'3 (4.5-11.0)
[2024-07-12 10:08] LABS: ALANINE AMINOTRANSFERASE 59 U/L (12-78); ALBUMIN 1.9 G/DL (3.4-5.0); ALBUMIN/GLOBULIN RATIO 0.5 (1.1-1.5); ALKALINE PHOSPHATASE 76 IU/L (46-116); AMYLASE 238 U/L (25-115); ANION GAP 8 (8-16); ASPARTATE AMINO TRANSFERASE 30 U/L (10-37); BILIRUBIN,TOTAL 0.3 MG/DL (0.1-1.0); BLOOD UREA NITROGEN 15 MG/DL (7-18); BUN/CREATININE RATIO 17.6 (10.0-20.0); CALCIUM 8.4 MG/DL (8.5-10.1); CHLORIDE 101 MMOL/L (99-107); CREATININE 0.85 MG/DL (0.60-1.10); GLUCOSE 148 MG/DL (70-104); MAGNESIUM 1.8 MG/DL (1.5-2.4); PHOSPHORUS 3.2 MG/DL (2.3-4.5); SODIUM 136 MMOL/L (135-145); TOTAL CARBON DIOXIDE 27.5 MMOL/L (24-32); TOTAL PROTEIN 6.1 G/DL (6.4-8.2); eCRCL 86 ML/MIN; eGFR > 90 ML/MIN
[2024-07-12 10:26] LABS: LIPASE > 375 U/L (16-77)
[2024-07-12 16:00] VITALS: BP 153/87; PULSE 94; RESP 18; TEMP 98.9; O2SAT 96
[2024-07-12 19:31] VITALS: BP 125/69; PULSE 78; RESP 16; TEMP 98.9; O2SAT 94
[2024-07-12 19:40] VITALS: RESP 16; O2SAT 94
[2024-07-13 00:43] VITALS: BP 142/70; PULSE 74; RESP 14; TEMP 98.1; O2SAT 95
[2024-07-13] MEDS: HYDROmorphone 1 mg/ml syringe IV PRN (02:20)
[2024-07-13 04:28] VITALS: BP 109/62; PULSE 78; RESP 12; TEMP 99; O2SAT 94
[2024-07-13 06:00] VITALS: BP 127/71; PULSE 79; RESP 16; TEMP 96.9; O2SAT 91
[2024-07-13 07:00] LABS: EOSINOPHILS # (AUTO) 0.3 X10'3 (0-0.9); MEAN CORPUSCULAR VOLUME 92.2 FL (78-98); MONOCYTES # (AUTO) 1.1 X10'3 (0-0.9); NEUTROPHILS % (AUTO) 69.3 % (42-75); RED BLOOD COUNT 4.04 X10'6 (4.70-6.10); RED CELL DISTRIBUTION WIDTH 13.3 % (11.5-14.5)
[2024-07-13 07:03] LABS: BASOPHILS # (AUTO) 0.1 X10'3 (0-0.2); BASOPHILS % (AUTO) 0.5 % (0-1); EOSINOPHILS % (AUTO) 2.7 % (0-6); HEMATOCRIT 37.3 % (42.0-52.0); HEMOGLOBIN 12.8 g/dl (14.0-17.9); LYMPHOCYTES # (AUTO) 1.9 X10'3 (1.1-4.8); LYMPHOCYTES % (AUTO) 17.8 % (21-51); MEAN CORPUSCULAR HEMOGLOBIN 31.7 PG (27.0-31.0); MEAN CORPUSCULAR HGB CONC 34.4 g/dL (33.0-36.5); MEAN PLATELET VOLUME 9.3 FL (7.4-10.4); MONOCYTES % (AUTO) 9.7 % (2-12); NEUTROPHILS # (AUTO) 7.5 X10'3 (1.8-7.7); PLATELET COUNT 308 X10'3 (140-440); WHITE BLOOD COUNT 10.9 X10'3 (4.5-11.0)
[2024-07-13 07:47] LABS: ALANINE AMINOTRANSFERASE 43 U/L (12-78); ALBUMIN 1.8 G/DL (3.4-5.0); ALBUMIN/GLOBULIN RATIO 0.4 (1.1-1.5); ALKALINE PHOSPHATASE 67 IU/L (46-116); AMYLASE 99 U/L (25-115); ANION GAP 3 (8-16); ASPARTATE AMINO TRANSFERASE 18 U/L (10-37); BILIRUBIN,TOTAL 0.3 MG/DL (0.1-1.0); BLOOD UREA NITROGEN 12 MG/DL (7-18); BUN/CREATININE RATIO 15.6 (10.0-20.0); CALCIUM 8.3 MG/DL (8.5-10.1); CHLORIDE 104 MMOL/L (99-107); CREATININE 0.77 MG/DL (0.60-1.10); GLUCOSE 158 MG/DL (70-104); LIPASE 370 U/L (16-77); MAGNESIUM 1.9 MG/DL (1.5-2.4); PHOSPHORUS 3.8 MG/DL (2.3-4.5); POTASSIUM 3.9 MMOL/L (3.5-5.1); SODIUM 136 MMOL/L (135-145); TOTAL CARBON DIOXIDE 28.6 MMOL/L (24-32); TOTAL PROTEIN 5.9 G/DL (6.4-8.2); eCRCL 95 ML/MIN; eGFR > 90 ML/MIN
[2024-07-13 08:00] VITALS: RESP 16; O2SAT 91
[2024-07-13] MEDS: multivitamins, therapeutics tablet PO SCH (08:25)
[2024-07-13] MEDS: thiamine 100mg tablet PO SCH (08:28)
[2024-07-13] MEDS ORDERED: haloperidol lactate 5mg/ml inj IM PRN (09:25)
[2024-07-13] MEDS ORDERED: LORazepam 1 MG tablet PO PRN (09:25)
[2024-07-13 11:12] VITALS: BP 135/68; PULSE 76; RESP 18; TEMP 97; O2SAT 91
[2024-07-13] MEDS ORDERED: METO-395 PO (12:10)
[2024-07-13] MEDS ORDERED: thiamine tablet PO (12:10)
[2024-07-13] MEDS ORDERED: FOLI1TAB27 PO (12:10)
[2024-07-13] MEDS ORDERED: LEVO-65 PO (12:23)
[2024-07-13 13:12] VITALS: RESP 17
[2024-07-13] MEDS ORDERED: LEVO750T68 PO (14:02)
[2024-07-13] MEDS ORDERED: HYDR-3965 PO (16:35)
[2024-07-13] MEDS ORDERED: LORA-269 PO (16:35)
[2024-07-13] MEDS ORDERED: QUEtiapine 25mg tablet PO SCH (21:00)
[2024-07-14] MEDS ORDERED: pantoprazole 40mg Tablet.DR PO SCH (07:30)
[2024-07-14] MEDS ORDERED: folic acid 1mg tablet PO SCH (08:00)
== END 2024-07-13 17:36 | disposition home or self-care (01) | DRG 720 ==
LOC: ER 14:58 → ED HOLD 18:21 → PCU 3S 21:44
PROVIDERS: ADMIT Internal Medicine; ATTEND Internal Medicine
PROC: BW241ZZ Computerized Tomography (CT Scan) of Chest and Abdomen using Low Osmolar Contrast (ICD-10-PCS; 2024-07-09)
PROC: 5A2204Z Restoration of Cardiac Rhythm, Single (ICD-10-PCS; 2024-07-09)
PROC: 05HY33Z Insertion of Infusion Device into Upper Vein, Percutaneous Approach (ICD-10-PCS; 2024-07-10)
PROC: B32T1ZZ Computerized Tomography (CT Scan) of Left Pulmonary Artery using Low Osmolar Contrast (ICD-10-PCS; principal; 2024-07-11)
PROC: B3201ZZ Computerized Tomography (CT Scan) of Thoracic Aorta using Low Osmolar Contrast (ICD-10-PCS; 2024-07-11)
PROC: B32S1ZZ Computerized Tomography (CT Scan) of Right Pulmonary Artery using Low Osmolar Contrast (ICD-10-PCS; 2024-07-11)
DX: A41.9 Sepsis, unspecified organism (principal); N17.0 Acute kidney failure with tubular necrosis; I21.A1 Myocardial infarction type 2; K85.20 Alcohol induced acute pancreatitis without necrosis or infection; J18.9 Pneumonia, unspecified organism; I47.10 Supraventricular tachycardia, unspecified; E87.1 Hypo-osmolality and hyponatremia; E87.8 Other disorders of electrolyte and fluid balance, not elsewhere classified; E86.0 Dehydration; I48.91 Unspecified atrial fibrillation; I25.10 Atherosclerotic heart disease of native coronary artery without angina pectoris; E66.9 Obesity, unspecified; E11.9 Type 2 diabetes mellitus without complications; I45.6 Pre-excitation syndrome; G47.30 Sleep apnea, unspecified; I10 Essential (primary) hypertension; T38.3X6A Underdosing of insulin and oral hypoglycemic [antidiabetic] drugs, initial encounter; F11.10 Opioid abuse, uncomplicated; F15.10 Other stimulant abuse, uncomplicated; I34.0 Nonrheumatic mitral (valve) insufficiency; F10.10 Alcohol abuse, uncomplicated; Y90.9 Presence of alcohol in blood, level not specified; Y92.89 Other specified places as the place of occurrence of the external cause; Z82.49 Family history of ischemic heart disease and other diseases of the circulatory system; Z68.30 Body mass index [BMI] 30.0-30.9, adult
CPT/HCPCS: 36410; 36415; 71045; 71250; 71275; 76937; 80053; 80305; 81001; 82150; 82948; 83036; 83605; 83690; 83735; 83880; 83930; 83935; 84100; 84145; 84484; 85007; 85008; 85025; 85379; 85610; 85730; 87040; 87081; 93005; 94760; 96365; 96367; 96375; 99285; A4615; A4620; A5200; C1751; G0378; J0153; J0456; J0696; J1170; J1644; J1815; J1956; J2270; J2405; J2470; J3490; J7030; Q9967

== ENCOUNTER 2025-05-20 10:56 | Outpatient (CLI) | payer MEDICAID ==
[~2025-05-20] VITALS: Ht 162.6 cm; Wt 83.9 kg
[~2025-05-20 10:56] MED LIST changes: +FOLI1TAB27 PO; +LORA-269 PO; +METO-395 PO; -NO HOME MEDS; -SOTA80TA73 PO; -adenosine 3mg/ml 2ml vial IV ONE; -etomidate 2mg/ml inj. ONE; +thiamine tablet PO
[2025-05-20 12:08] LABS: MEAN PLATELET VOLUME 8.9 FL (7.4-10.4); PRE OP HEMATOCRIT 43.9 % (42.0-52.0); PRE OP HEMOGLOBIN 15.5 g/dL (14.0-17.9); PRE OP PLATELET COUNT 216 X10'3 (140-440); PRE OP WHITE BLOOD COUNT 6.9 10'3 (4.8-10.8); RED CELL DISTRIBUTION WIDTH 13.7 % (11.5-14.5)
[2025-05-20 12:26] LABS: CREATININE 0.99 MG/DL (0.60-1.10); PRE OP ALT 39 U/L (30-65); PRE OP ANION GAP 5 (8-16); PRE OP AST 29 U/L (10-37); PRE OP BILIRUB, TOTAL 0.6 MG/DL (0.0-1.0); PRE OP POTASSIUM 3.9 MMOL/L (3.4-5.1); PRE OP SODIUM 136 MMOL/L (135-145); TOTAL CARBON DIOXIDE 30.1 MMOL/L (24-32); eGFR 78 ML/MIN
[2025-05-20 12:58] LABS: PRE OP GLUCOSE 203 MG/DL (70-104)
[2025-05-20] MEDS ORDERED: TIRZ5PEN IM (17:28)
[2025-05-20] MEDS ORDERED: ACET-1025 PO (17:28)
[2025-05-20] MEDS ORDERED: short acting insulin SQ (17:28)
[2025-05-26] MEDS ORDERED: ceFAZolin 2gm/dext,iso 50mL 50 ML IV ONE (05:30)
[2025-05-26] MEDS ORDERED: VANCOMYCIN/H2O 1.5g/300mL PB 300 ML IV ONE (05:30)
[2025-05-26] MEDS ORDERED: ringers solution, lacted 1,000 ML IV SCH (05:30)
== END 2025-05-20 23:59 | disposition home or self-care (01) ==
LOC: LAB 10:56 → EDSTATUS 05-26 07:30
PROVIDERS: ATTEND Orthopaedic Surgery
DX: M25.561 Pain in right knee (principal); M17.31 Unilateral post-traumatic osteoarthritis, right knee; Z96.652 Presence of left artificial knee joint
CPT/HCPCS: 36415; 80053; 83036; 85025; J7120